=== PATIENT | female | born 1945 | race Caucasian/White ===

== ENCOUNTER → 2018-03-20 15:03 | Outpatient (CLI) | payer OTHER, SELFPAY ==
--- NOTE | 2018-03-20 | DI.MG.S_ITS ---
BILATERAL DIGITAL SCREENING MAMMOGRAM 3D/2D WITH CAD: 03/20/2018 CLINICAL: Routine screening. Comparison is made to exams dated: 06/28/2005 mammogram, 05/29/2003 mammogram, and 02/12/2001 mammogram - [facility]. The tissue of both breasts is predominantly fatty. Current study was also evaluated with a Computer Aided Detection (CAD) system. No significant masses, calcifications, or other findings are seen in either breast. There has been no significant interval change. IMPRESSION: NEGATIVE There is no mammographic evidence of malignancy. A 1 year screening mammogram is recommended. This exam was interpreted at Station ID: [id number]. NOTE: For mammograms, a report in lay terms will be sent to the patient. Approximately 15% of breast malignancies will not be visualized mammographically. In the management of a palpable breast mass, a negative mammogram must not discourage biopsy of a clinically suspicious lesion. Electronically Signed By: Charisse beltran/kenneth:03/20/2018 16:03:21 letter sent: Normal Exam ACR BI-RADS Category 1: Negative [id number]
== END ==
PROVIDERS: Family Provider Internal Medicine; PCP Internal Medicine; Visit Provider Internal Medicine
DX: Z12.31 Encounter for screening mammogram for malignant neoplasm of breast (principal)
CPT/HCPCS: 77063; 77067

== ENCOUNTER → 2018-03-26 08:20 | Outpatient (CLI) | payer OTHER, SELFPAY ==
[2018-03-26 11:40] LABS: Alanine Aminotransferase 33 IU/L (9-52); Aspartate Aminotransferase 27 IU/L (14-36); Blood Urea Nitrogen 14 mg/dL (7-17); Calcium 9.4 mg/dL (8.4-10.2); Carbon Dioxide 30 mmol/L (22-32); Chloride 102 mmol/L (98-107); Cholesterol 178 mg/dL (140-199); Estimated Glomerular Filt Rate > 60.0 mL/min (>60); Glucose 97 mg/dL (80-110); HDL Cholesterol 78 mg/dL (40-60); HEMOLYSIS < 15 (0-50); LDL Cholesterol Calculated 83 mg/dL (<100); Potassium 4.7 mmol/L (3.4-5.1); Sodium 140 mmol/L (137-145); Triglycerides 87 mg/dL (35-150)
== END ==
PROVIDERS: Family Provider Internal Medicine; PCP Internal Medicine; Visit Provider Internal Medicine
DX: E78.5 Hyperlipidemia, unspecified (principal); I10 Essential (primary) hypertension
CPT/HCPCS: 36415; 80048; 80061; 84450; 84460

== ENCOUNTER → 2018-08-02 13:43 | Outpatient (CLI) | payer OTHER, SELFPAY ==
--- NOTE | 2018-08-02 | DI.ECHO.S_ITS ---
[facility] +---------+ [facility] +---------+ : : [address] : [address], [place] : : : : [id number] : : : : Phone: [phone]+ Echocardiogram Report + + :Name: KORI CADE Study Date: 08/02/2018 Height: 67 in : :[facility] Weight: 198 lb : : Gender: Female BSA: 2.0 m2 : :: 1945 Age: 73 yrs BP: 158/82 mmHg: :Reason For Study: Syncope : : Performed By: Tayla Temple : :Referring: LISBETH KENNY : + + Interpretation Summary 1) Normal left ventricular size, thickness, wall motion, and systolic function (EF 60-65%). 2) Normal right ventricular size and function. 3) No significant valvular abnormalities. 4) No prior Echo available for comparison. Procedure: A two-dimensional transthoracic echocardiogram with color flow and Doppler was performed. The study quality was technically adequate. There is no prior echocardiogram noted for this patient. The patient was in normal sinus rhythm during the exam. Left Ventricle: The left ventricle is normal in size, wall thickness, and systolic function without any focal wall motion abnormalities. The ejection fraction is estimated to be 60-65%. Diastolic function could not be accurately assessed due to unobtainable data. Right Ventricle: The right ventricle grossly appears normal in size with probable normal systolic function. Atria: The left atrium is mildly dilated. Right atrial size is normal. The interatrial septum is intact with no evidence for an atrial septal defect. Mitral Valve: The mitral valve is grossly normal. There is trace mitral regurgitation. Aortic Valve: The aortic valve opens well. There is no aortic valve stenosis. No aortic regurgitation is present. Tricuspid Valve: The tricuspid valve is normal in structure and function. No tricuspid regurgitation. Pulmonic Valve: The pulmonic valve is not well seen, but is grossly normal. There is no pulmonic valvular regurgitation. Great Vessels: The aortic root is normal size. The dimensions of the ascending aorta are normal. The IVC is of normal diameter and collapses greater than 50% with a sniff. This suggests a low right atrial pressure of 3 mm Hg. Pericardium/ Pleura There is no pericardial effusion. There is no pleural effusion. MMode/2D Measurements & Calculations LVIDd: 4.4 cm Ao root diam: 2.7 cm LVIDs: 2.8 cm Aortic Jxn: 2.4 cm FS: 37.0 % asc Aorta Diam: 3.1 cm EPSS: 0.51 cm Ao Arch Diam (Prox Trans): 2.6 cm IVSd: 0.97 cm LVPWd: 0.99 cm LV cope. diameter/BSA (cm/m^2): 2.2 LV sys. diameter/BSA (cm/m^2): 1.4 LA dimension: 3.7 cm RA long axis: 4.8 cm LA A2 area: 22.8 cm2 RA area: 15.8 cm2 LA A4 area: 20.1 cm2 RA vol: 43.8 ml LA length (vol): 5.3 cm RA : 21.8 ml/m2 LA vol: 73.9 ml IVC diam: 1.9 cm LA vol index: 36.7 ml/m2 RVDd major: 5.2 cm RVD1 (basal): 3.4 cm RVD2 (mid): 2.7 cm Doppler Measurements & Calculations Ao V2 max: 158.9 cm/sec LVOT Max Mike: 160.9 cm/sec Ao V2 mean: 99.0 cm/sec LV V1 max P.4 mmHg Ao max P.1 mmHg LV V1 VTI: 39.0 cm Ao mean P.6 mmHg sev ratio: 1.1 Ao V2 VTI: 35.7 cm MV E max mike: 101.6 cm/sec PA Accel Time: 0.16 sec MV A max mike: 102.5 cm/sec MV E/A: 0.99 Med Peak E' Mike: 5.9 cm/sec E/E' med: 17.2 Lat Peak E' Mike: 9.7 cm/sec E/E' lat: 10.5 E/e' average: 13.9 MV dec time: 0.22 sec MV P1/2t: 64.9 msec MV P1/2t max mike: 102.0 cm/sec MVA(P1/2t): 3.4 cm2 Reading Physician:03:19 PM
== END ==
PROVIDERS: Family Provider Internal Medicine; PCP Internal Medicine; Visit Provider Internal Medicine
DX: R55 Syncope and collapse (principal)
CPT/HCPCS: 93306

== ENCOUNTER → 2019-04-28 09:32 | Outpatient (CLI) | payer OTHER, SELFPAY ==
[2019-04-28 10:55] LABS: Add Manual Diff / Slide Review NO; Basophils Absolute Auto 0 /uL (0-100); Basophils Percent Auto 0.6 % (0-2); Eosinophils Absolute Auto 100 /uL (0-450); Eosinophils Percent Auto 1.5 % (2-4); Hematocrit 39.7 % (36-46); Hemoglobin 13.4 g/dL (12.0-16.0); Lymphocytes Absolute Auto 1400 /uL (1100-4500); Lymphocytes Percent Auto 21.5 % (25-40); Mean Corpuscular HGB Conc 33.7 % (30-36); Mean Corpuscular Hemoglobin 30.9 PG (26-34); Mean Corpuscular Volume 91.7 fL (80-100); Monocytes Absolute Auto 500 /uL (0-900); Monocytes Percent Auto 8.2 % (3-14); Neutrophils Absolute Auto 4500 /uL (1500-7000); Neutrophils Percent Auto 68.2 % (50-75); Platelet Count 217 X10^3/uL (150-400); Red Blood Cell Count 4.33 X10^6/uL (4.0-5.2); Red Cell Distribution Width 13.1 % (11.6-14.8); White Blood Cell Count 6.6 X10^3/uL (4.5-11.0)
[2019-04-28 11:11] LABS: Carbon Dioxide 28 mmol/L (22-32); Chloride 105 mmol/L (98-107); HEMOLYSIS < 15 (0-50); Potassium 4.6 mmol/L (3.4-5.1); Sodium 139 mmol/L (137-145)
== END ==
PROVIDERS: PCP Internal Medicine; Visit Provider Orthopaedic Surgery
DX: Z01.818 Encounter for other preprocedural examination (principal); Z01.812 Encounter for preprocedural laboratory examination
CPT/HCPCS: 36415; 80051; 85025; 93005

== ENCOUNTER → 2019-05-12 07:26 | Outpatient (CLI) | payer OTHER, SELFPAY ==
[2019-05-12 09:05] LABS: Cholesterol 210 mg/dL (140-199); HDL Cholesterol 95 mg/dL (40-60); LDL Cholesterol Calculated 95 mg/dL (<100); Triglycerides 99 mg/dL (35-150)
== END ==
PROVIDERS: PCP Internal Medicine; Visit Provider Internal Medicine
DX: E78.5 Hyperlipidemia, unspecified (principal)
CPT/HCPCS: 36415; 80061

== ENCOUNTER 2019-06-04 09:22 | Day surgery (SDC) | payer OTHER, SELFPAY ==
[2019-05-20 12:50] VITALS: BMI 28.6
[2019-06-04] VITALS (16 sets, daily range): BP systolic 94–139; BP diastolic 45–81; PULSE 63–81; RESP 13–20; TEMP 35.7–36.4; O2SAT 93–99; BMI 28.6
--- NOTE | 2019-06-04 07:19 | DI.RAD.S_ITS ---
PROCEDURE: XR KNEE RT 1TO2V INDICATIONS: post op films TECHNIQUE: 2 view(s) of the knee acquired. COMPARISON: [facility], , KNEE 3V LEFT, 08/27/2015, 10:31. FINDINGS: Bones: Patient is status post knee joint arthroplasty. Hardware components are in expected positions. Visualized bony structures are intact. Soft tissues: Overlying postoperative changes are noted. IMPRESSION: Status post right total knee arthroplasty. No acute hardware complication. Normal postoperative alignment. Dictated by: Jamal Walker M.D. on 06/04/2019 at 17:47 Approved by: Jamal Walker M.D. on 06/04/2019 at 17:48
[2019-06-04] MEDS: LACTATED RINGERS 1,000 ML 42 ML IV ×2 (10:03→13:34)
[2019-06-04] MEDS: CELECOXIB 200 MG CAPSULE PO (10:12)
[2019-06-04] MEDS: PREGABALIN 75 MG CAPSULE PO (10:12)
[2019-06-04] MEDS: ACETAMINOPHEN 325 MG TABLET 975 MG PO ×2 (10:12→15:39)
--- NOTE | 2019-06-04 10:45 | P.OP_ITS ---
Operative Date/Time/Diagnoses Date of procedure: 06/04/19 Time of procedure: 13:23 Pre-op diagnosis: Right knee osteoarthritis Post-op diagnosis: same Procedure & Clinicians Procedure: Right total knee arthroplasty Same procedure as scheduled: Yes Indications: The patient presents today for total knee arthroplasty after failure of conservative treatment. The nature of the procedure including the risks and benefits, alternatives, postoperative course and expected outcome were discussed and all questions answered. Consent was obtained. Operative site confirmed and marked. Surgeon: Chris Avery Story Writer: Jaime Huerta Anesthesia Type: General, Spinal and Local Operative Notes Findings: Severe osteoarthritis with varus alignment. Closure Type: primary Specimen(s): none sent Prosthetic devices, grafts, tissues, transplants, or devices: [employer] BCS: 5 femoral component, 3 tibial component, 9 mm BCS polyethylene tray and 32 x 7.5 mm round patella Blood products transfused: none Tourniquet time (min): 47 Procedure in detail: The patient was taken to the operative suite and placed under general and spinal. The patient was given prophylactic antibiotics prior to surgery. The patient was also given tranexamic acid, 1 g, just prior to surgery for postoperative hemostasis. The lateral knee was prepped and the joint injected with 20 mL of 1% Lidocaine with epinephrine. The knee was then prepped and draped in usual sterile fashion. The leg was exsanguinated with an Esmarch dressing and the tourniquet raised to 250 torr. A 15 cm anterior incision was made. Next a medial trivector arthrotomy was made. The extensor mechanism was marked to ensure accurate repair. Initial exposing dissection was carried out medially and laterally. The knee was then extended and the patellar thickness was measured and a cut made removing approximately 7- 8 mm of bone with a goal of restoring normal patellar thickness. The patella was then sized and drilled. Some excess lateral bone was excised and the patellofemoral ligament released. The tourniquet was then released. The knee was then flexed and the [employer] femoral guide was placed. The anterior pins were placed and the distal rotation holes drilled. The distal cutting guide was placed and the templated distal femoral cut was made. The templating cutting block was then placed and the anterior, posterior and chamfer cuts made. The [employer] tibial guide was placed and the alignment checked along the axis of the proximal tibial with a thien. The proximal tibial cut was then made with an oscillating saw. All meniscus and bony debris was then removed. Flexion extension gaps were checked. There is mild tightness medially in flexion only. This was corrected with percutaneous release of the MCL with an 18 gauge needle. The soft tissues were then injected with a combination of 20 mL of half percent Marcaine with epinephrine and 20 mL of Exparel. The trial components were then placed. The knee went into full extension and flexion beyond 120?. There was excellent medial- lateral balance throughout motion. Patellar tracking was excellent. The trial components were removed and size is confirmed for the final implants. The knee was then exsanguinated with an Esmarch dressing and the tourniquet reapplied for cementing. The knee was cleansed with Pulsavac irrigation and dried. The final components were cemented in with high viscosity vacuum mixed bone cement with antibiotics. The knee was held in extension and the patellar clamp until the cement had adequately cured. The knee was then irrigated with dilute Betadine solution. The extensor mechanism was closed with 5 interrupted #1 Vicryl sutures in 90 degrees of flexion. The joint was then injected with a combination of 1 g of tranexamic acid and 20 mL of quarter percent Marcaine with epinephrine. The subcutaneous tissue was closed with 2-0 Vicryl. The skin was closed with ravi and surgical adhesive. An Aquacel dressing and Maycol wrap were then applied. Complications: none Post-operative Condition: stable Disposition: PACU Plan for aftercare: [facility] protocol for total knee arthroplasty.
--- NOTE | 2019-06-04 10:45 | PM.PREOP ---
Pre-operative Note Interval Note History & Physical reviewed/Exam performed by Physician: Yes Changes to H&P: No
--- NOTE | 2019-06-04 11:30 | P.PCN_ITS ---
Procedures Date/Time Date of procedure: 06/04/19 Time of procedure: 11:30 General Procedure description: Ultrasound guided adductor canal nerve block for post op pain control after Right total knee arthroplasty by Dr. Avery. Risk and be nefits of procedure discussed with patient. ASA monitoring applied to patient. O2 given via nasal cannula. 2 mg Versed and 100 mcg fentanyl given for procedural sedation. Skin site was prepped with chlorhexidine and allowed to fully dry. Sterile gloves, mask, hat and probe cover were used to maintain sterility. 2% lidocaine and 30ga needle was used to make a small skin wheal at needle insertion site. Under ultrasound guidance, a 21ga 100mm Pajunk needle was directed into the adductor canal near femoral artery and saphenous nerve at the level of mid thigh. Patient reported no parasthesias. After negative aspiration, 20 mL 0.5% ropivicaine and 10mg dexamethasone were injected around saphenous nerve. Patient tolerated procedure well.
[2019-06-04] MEDS: CEFAZOLIN 2 GM/100 ML FROZ.PIGGY IV (12:00)
[2019-06-04] MEDS: TRANEXAMIC ACID 1,000 MG VIAL 1000 MG INJ (12:36)
--- NOTE | 2019-06-04 12:45 | SUR.PREOP ---
Block start time [1129] . Monitoring initiated and maintained throughout procedure. Oxygen and medications given per anesthesiologist instructions. Patient remained stable throughout procedure, no adverse reactions noted. Block end time [1140].
--- NOTE | 2019-06-04 12:45 | SUR.OPER ---
Supine on padded OR bed. Pillow under head, arms secured on padded armboards <90 degree abduction. Safety belt across torso. Non-operative leg secured with tape over blanket over lower leg. Operative leg secured in DeMayo/Shahid positioner. Foam padded brace at thigh of operative leg.
[2019-06-04] MEDS: BUPIVACAINE 0.25% W/ EPI (PF) 40 ML, BUPIVACAINE LIPOSOME 266 MG, SODIUM CHLORIDE 0.9% ... INJ (12:57)
[2019-06-04] MEDS: BUPIVACAINE 0.25% W/ EPI (PF) 20 ML, TRANEXAMIC ACID 1,000 MG, SODIUM CHLORIDE 0.9% 10 ML INJ (12:59)
[2019-06-04] MEDS: LACTATED RINGERS 1,000 ML 125 ML IV (15:43)
--- NOTE | 2019-06-04 16:10 | PT.IIE ---
Current Diagnoses Bilateral primary osteoarthritis of knee (06/04/19) Surgery Performed Operation Date: 06/04/19 11:30 Actual Procedures p Total Knee Arthroplasty(Right) - Chris Avery MD Surgical History (Last Updated 05/20/19 @ 13:38 by Kat Camacho, RN) Hx of lithotripsy (Acute) Hx of right knee surgery (Acute) Medical History (Last Updated 05/20/19 @ 13:17 by Kat Camacho RN) Easy bruisability (Acute) Encounter for IUD removal (Acute) HLD (hyperlipidemia) (Acute) HTN (hypertension) (Acute) Kidney stone (Acute) Patellar fracture (Acute ~1994) Seasonal allergies (Acute) Senile purpura (Acute) Physical Therapy Inpatient Evaluation/Re-Eval M1 PT/OT-IP Prior Functional Status Start: 06/04/19 16:53 Freq: NEEDED Status: Active Protocol: Document 06/04/19 16:10 AB (Rec: 06/04/19 17:03 AB [id number]) Medical Review Prior Functional Status Medical History Reviewed Yes Communication able to make needs known Mobility and Gait pt stated that she is independent with all mobilities and ambulation without AD Social History Household Members spouse Living Arrangements House Number of Floors (Floors) One Floor Number of Stairs To Enter/Railing? no steps to enter Home Environment Standard Height Toilet,Walk in Shower,Built-In Shower Seat Home Equipment Front Wheel Walker,Quad Cane, Crutches,Raised Toilet Seat w/ Armrests,Shower Seat with Backrest,Hand Held Shower Employment Status Retired Additional Social History Comment has a transport w/c M2 PT-IP Current Condition Start: 06/04/19 16:53 Freq: NEEDED Status: Active Protocol: Document 06/04/19 16:10 AB (Rec: 06/04/19 17:03 AB [id number]) Physical Therapy Current Condition Current Condition Evaluation Date 06/04/19 Treatment Diagnosis s/p R TKA; difficulty in walking Onset Date 06/04/19 Weight Bearing Status Weight Bearing Status Weight Bear as Tolerated M3 PT-IP Subjective Start: 06/04/19 16:53 Freq: NEEDED Status: Active Protocol: Document 06/04/19 16:10 AB (Rec: 06/04/19 17:03 AB [id number]) Subjective Physical Therapy Visit Type Type Initial Evaluation Visit Start Time 16:10 Visit Stop Time 16:50 Total Visit Minutes 40 Number of NUB CARD TENDER Visits 0 Physical Therapy Visit Comments Patient Comments pt agreeable to do PT; stated that there is still slight numbness on her R foot Therapy Pain Assessment Pain Present Pain Present Denied Pain M4 PT-IP Mobility and Gait Start: 06/04/19 16:53 Freq: NEEDED Status: Active Protocol: Document 06/04/19 16:10 AB (Rec: 06/04/19 17:03 AB [id number]) PT-Bed Mobility Assessment Supine to Sit Supine to Sit Standby Assistance Sit to Supine Sit to Supine Standby Assistance Scooting Scooting to Edge of Bed Standby Assistance PT-Transfer Assessment Sit to and From Stand Sit to and from Stand Contact Guard Assistance,1 Person Assistance,Use of Upper Extremities Equipment Transfer Assistive Device Gait Belt,Front Wheeled Walker Orthotic/Prosthetic Devices or Brace: No Transfers Transfer Destination Toilet Transfer Technique ambulated to the toilet Transfer Ability Level of Assist Contact Guard Assistance,1 Person Assistance,Use of Upper Extremities Comments Mobility Comments BP supine 121/71 pt ompleted bed mobility supine to sit SBA ; was able to sit on EOB SBA. BP 124/73. ambulated to the toilet using FWW CGA. pt agreed to ambulate further after using the toilet. pt ambulated in the hallway and after ~ 50 ft stated that she has to turn around and go back and feels a little nausea and cold but also hot. Pt walked ~ 20 ft towards her room and has to sit down. assisted pt back to her room on a w/c. BP checked: 139/72. pt still feels lightheaded and nauseated. pt completed stand step transfer w/c to bed using FWW CGA. completed sit to supine SBA. positioned pt in bed. call light and table placed within reach. nurse aware of pt's BP and c/o nausea. Gait Assessment Gait Gait Assistance Required: Contact Guard Assist Distance (Feet) 70 Able to Maintain Weight Bearing Status Yes During Gait Assistive Devices Assistive Device Gait Belt,Front Wheeled Walker Orthotic/Prosthetic Devices or Brace: No Gait Deviations General Gait Pattern Antalgic,Decreased Stride Length,Decreased Feet Clearance Factors Limiting Gait Function Factors Limiting Gait Function Decreased Activity Tolerance, Decreased Sensation,Decreased Strength,Limited Range of Motion,Poor Balance,Poor Safety Awareness Comments Gait Comments pls refer to mobility section for details PT-Balance Assessment Sitting Balance and Reactions Static Sitting Balance Ability Good Dynamic Sitting Balance Ability Good Standing Balance and Reactions Static Standing Balance Ability Fair Dynamic Standing Balance Ability Fair Device Used FWW M5 PT-IP Objective Assessments Start: 06/04/19 16:53 Freq: NEEDED Status: Active Protocol: Document 06/04/19 16:10 AB (Rec: 06/04/19 17:03 AB [id number]) Orientation Orientation/Cognition Level of Alertness Alert Orientation Name,Place,Situation Safety Awareness Understands Safety Issues Memory Description No Deficits Noted Gross Range of Motion Lower Extremity ROM Assessment Right Impaired Impairments R knee flexion: ~ 90 deg Strength Comments Strength Comments LLE: 5/5 RLE: 4-/5 Coordination Assessment Gross Coordination Gross Coordination WNL Sensation Assessment Sensation Gross Sensation Right LE Impaired Sensation Description Numbness M6 PT-IP Treatment Start: 06/04/19 16:53 Freq: NEEDED Status: Active Protocol: Document 06/04/19 16:10 AB (Rec: 06/04/19 17:03 AB [id number]) Physical Therapy Treatment Exercises Exercises Heel Slides Education Education Provided Precautions,Weight Bearing Status,Post-Op Packet,Safety M7 PT-IP Assessment and Plan Start: 06/04/19 16:53 Freq: NEEDED Status: Active Protocol: Document 06/04/19 16:10 AB (Rec: 06/04/19 17:03 [id number]) PT Summary Assessment and Plan Potential Rehabilitation Potential Good Status of Condition at Evaluation Evolving Summary Impairments Pain,ROM,Strength,Balance, Sensation,Bed Mobility, Transfers,Gait,Activity Tolerance Assessment Summary pt requiring CGA with mobility but unable to tolerate much with c/o nausea and lightheadedness. pt plans to go home and spouse to assist her. Goals Bed Mobility Goal Independent Transfer Goal Independent,Front Wheeled Walker Gait Goal Independent,Front Wheel Walker Gait Distance 200 Days to Meet Goals 3 Frequency of Treatment Frequency Of Treatment Twice a Day Treatment Plan Physical Therapy Treatment Plan Bed Mobility Training,Transfer Training,Gait Training, Therapeutic Exercise,Balance Retraining,Post Op Education, Discharge Planning,Hot or Cold Pack,Neuromuscular Re-ed, Coordination Retraining,Manual Therapy Other Recommendations and Next Treatment ambulation Focus Recommendations To Nursing Amount of Assist Needed 1 Person Assist Discharge Recommendations PT Discharge Recommendations Home with Assistance, Outpatient PT
--- NOTE | 2019-06-04 16:12 | PC.ADMIT ---
[email or web address] [facility] Admission Note: The patient,Jolly Clark,74 y/o, was given written information regarding hospital policies, unit procedures and contact persons. Patient's smoking status: Former smoker. Assumed care of pt at 1500. Shortly after pt arrived to unit from PACU. Denies pain. Reports mild tingling to Bilateral feet. Able to wiggle toes. Drsg with idalmis wrap c/d/i. Oriented to room and call system. IVF set-up per orders. 2L NC sats 99%. Oxygen removed sats remained 99%, CPOX. Auditude path I.S. set-up and instructed on use. Call light within reach. Pt verbalized she will call for needs. Vital Signs - 8 hr 06/04/19 09:46 06/04/19 13:43 06/04/19 13:48 Temperature 97.6 F 97.0 F L Pulse Rate 72 78 69 Respiratory Rate 15 20 14 Blood Pressure 139/81 104/48 L 94/49 L Pulse Oximetry 99 96 98 06/04/19 13:53 06/04/19 13:58 06/04/19 14:05 Temperature Pulse Rate 74 70 71 Respiratory Rate 17 14 14 Blood Pressure 97/45 L 108/54 L 106/55 L Pulse Oximetry 97 96 97 06/04/19 14:09 06/04/19 14:19 06/04/19 14:31 Temperature 96.8 F L 96.3 F L Pulse Rate 70 70 69 Respiratory Rate 16 13 17 Blood Pressure 101/59 L 103/50 L 104/53 L Pulse Oximetry 97 97 96 06/04/19 14:46 Temperature 97.0 F L Pulse Rate 65 Respiratory Rate 16 Blood Pressure 114/66 Pulse Oximetry 96
[2019-06-04] MEDS: diphenhydrAMINE 50 MG/ML VIAL 25 MG IV (18:06)
--- NOTE | 2019-06-04 18:39 | PM.DS.1 ---
History of Present Illness History of Present Illness Date Patient Seen: 06/04/19 Time Patient Seen: 18:39 Chief complaint: *[id number] Narrative: Patient is having no pain. Denies fever chills. No nausea vomiting. She was up with physical therapy. She has been able to urinate on her own. Patient wishes to go home if safe to do so. Patient does have assistance at home. Discharge Providers Provider Discharge Date: 06/04/19 Primary care physician: Mi Rodriguez MD Consults: 06/04/19 15:06 Consult to Discharge Planning Routine Comment: Consult to Physical Therapy Evaluate & Treat Comment: Physician Instructions: postop TKA protocol Consult to Respiratory Therapy Evaluate & Treat Comment: Physician Instructions: Evaluate and treat Discharge provider: Jaime Huerta PA-C Summary Hospital Course Discharge Diagnosis: Status post right total knee arthroplasty secondary to severe right knee osteoarthritis Hospital Course: [address] [address] Operative Note Patient: Jolly Clark [facility]#: [id number] : 4Acct:[id number] Age/Sex: 74 / F Date of Service: 06/04/19 Provider: Chris Avery MD Operative Date/Time/Diagnoses Date of procedure: 06/04/19 Time of procedure: 13:23 Pre-op diagnosis: Right knee osteoarthritis Post-op diagnosis: same Procedure & Clinicians Procedure: Right total knee arthroplasty Same procedure as scheduled: Yes Indications: The patient presents today for total knee arthroplasty after failure of conservative treatment. The nature of the procedure including the risks and benefits, alternatives, postoperative course and expected outcome were discussed and all questions answered. Consent was obtained. Operative site confirmed and marked. Surgeon: Chris Avery Reading Tutor: Jaime Huerta Anesthesia Type: General, Spinal and Local Operative Notes Findings: Severe osteoarthritis with varus alignment. Closure Type: primary Specimen(s): none sent Prosthetic devices, grafts, tissues, transplants, or devices: [employer] BCS: 5 femoral component, 3 tibial component, 9 mm BCS polyethylene tray and 32 x 7.5 mm round patella Blood products transfused: none Tourniquet time (min): 47 Patient admitted to the hospital for right total knee arthroplasty. Patient consented to the same. Patient taken to operating room this morning underwent right total knee arthroplasty. Patient back in her room recovering well as in stable condition. Patient worked with physical therapy. She is safe to discharge home in stable condition. Status at Discharge Cognitive/behavioral status at discharge: at baseline, oriented Functional status at discharge: uses cane/walker Overall status at discharge: patient is progressing back to baseline Exam Vital Signs (past 8 hours): - 06/04/19 13:43 06/04/19 13:48 06/04/19 13:53 Temperature 97.0 F L Pulse Rate 78 69 74 Respiratory Rate 20 14 17 Blood Pressure 104/48 L 94/49 L 97/45 L Pulse Oximetry 96 98 97 06/04/19 13:58 06/04/19 14:05 06/04/19 14:09 Temperature 96.8 F L Pulse Rate 70 71 70 Respiratory Rate 14 14 16 Blood Pressure 108/54 L 106/55 L 101/59 L Pulse Oximetry 96 97 97 06/04/19 14:19 06/04/19 14:31 06/04/19 14:46 Temperature 96.3 F L 97.0 F L Pulse Rate 70 69 65 Respiratory Rate 13 17 16 Blood Pressure 103/50 L 104/53 L 114/66 Pulse Oximetry 97 96 96 06/04/19 15:10 06/04/19 15:40 06/04/19 16:40 Temperature 96.6 F L 96.8 F L 96.7 F L Pulse Rate 63 66 72 Respiratory Rate 16 16 16 Blood Pressure 110/57 L 121/71 127/58 L Pulse Oximetry 95 98 99 06/04/19 16:48 06/04/19 17:40 Temperature 96.7 F L Pulse Rate 70 81 Respiratory Rate 16 Blood Pressure 123/59 L Pulse Oximetry 96 93 Oxygen Delivery Method Room Air Oxygen Flow Rate 0 Narrative Exam Narrative: Pleasant 74-year-old female resting comfortably in bed in no apparent distress. Right knee dressing is clean, dry and intact. Motor functions intact distal right lower extremity. Sensation grossly intact to light touch. Right leg is warm and dry. SCDs are on and functioning. Discharge Plan Discharge Plan Patient Disposition: Home Discharge Med Rec/Prescriptions Prescriptions: Continued losartan 50 mg Tablet 100 mg PO QAM RF: 0 atorvastatin 20 mg Tablet 20 mg PO BEDTIME RF: 0 cetirizine 10 mg Tablet 10 mg PO DAILY RF: 0 diphenhydramine HCl [Benadryl] 25 mg Capsule 25 mg PO BEDTIME RF: 0 ibuprofen 200 mg Tablet 400 mg PO BID-TID PRN (Reason: Pain) RF: 0 fluticasone propionate [Flonase Allergy Relief] 50 mcg/actuation [place],Suspension 1 spray INTRANASAL DAILY RF: 0 Follow up/Referrals: Chris Avery MD [Physician] - (1 wk) Discharge Orders: Discharge (Order); Ordered 06/04/19 Ordered By: Jaime Huerta Provider Discharge Instructions Diet: Diet as Tolerated Activity: Weightbearing as tolerated Cold/Heat Therapy: Ice as needed Other treatments: Aspirin 81 mg b.i.d., Tylenol 500 mg q.4 hours, ibuprofen 400 mg q.4 hours, oxycodone as needed pain Skin/Wound/Dressing Care Report to your healthcare provider any signs of infection, such as:: chills, fever, increased pain, unusual drainage and unusual redness Dressing: Keep dressing clean and dry, may remove Maycol wrap in 2-3 days Discharge Data Primary Care Provider: Mi Rodriguez Attending Provider: Chris Avery VTE Deep Vein Thrombosis/Pulmonary Embolism Present on Admission: No
[2019-06-04] MEDS: ONDANSETRON 4 MG ODT PO (19:19)
--- NOTE | 2019-06-04 21:32 | PC.NURSE ---
Jaime GODWIN rounded on pt this evening; discharge orders written. Pt ambulated to bathroom. Steady on feet. D/c education provided. Pt states she has all scripts as given pre-op. IV removed. As pt was about to leave she became nauseous and had 200 ml emesis. ODT zofran given as pt no longer had IV. Pt escorted out via w/c with all personal belongings in stable condition.
== END 2019-06-04 19:30 | disposition home or self-care (01) ==
LOC: OR 09:30 → AC 09:34
PROVIDERS: PCP Internal Medicine; Visit Provider Orthopaedic Surgery
PROC: 0SRC0JZ Replacement of Right Knee Joint with Synthetic Substitute, Open Approach (ICD-10-PCS; CPT 27447; principal; 2019-06-04 11:30)
DX: M17.11 Unilateral primary osteoarthritis, right knee (principal); G89.18 Other acute postprocedural pain; M85.80 Other specified disorders of bone density and structure, unspecified site; I10 Essential (primary) hypertension; E78.5 Hyperlipidemia, unspecified; Z87.891 Personal history of nicotine dependence
CPT/HCPCS: 27447; 64447; 73560; 94762; 97162; 97530; C1776; C9290; J0690; J1100; J1200; J2250; J2274; J2405; J2704; J3010

== ENCOUNTER → 2020-02-02 14:10 | Outpatient (CLI) | payer OTHER, SELFPAY ==
[2019-06-04 15:08] VITALS: BMI 28.6
--- NOTE | 2020-02-02 | DI.MRI.S_ITS ---
PROCEDURE: MR KNEE LT WO CON INDICATIONS: PAIN IN LEFT KNEE TECHNIQUE: Noncontrast sagittal PD fast spin echo and T2 fast spin echo with fat saturation, sagittal 3-D FLASH with fat saturation; coronal T1 spin echo and PD fast spin echo with fat saturation, and axial PD fast spin echo with fat saturation through the knee. COMPARISON: [facility], CR, XR KNEE ARTHRITIC SERIES RT, 07/21/2019, 10:32. FINDINGS: Image quality: Excellent. Menisci: Medial meniscus is intact. Amorphous high signal intensity within the anterior horn, body, and posterior horn lateral meniscus is present, demonstrating superior and inferior articular surface extension, indicating degenerative tearing. Cruciate ligaments: The anterior and posterior cruciate ligaments appear intact. Medial structures: The medial collateral ligament appears intact. Visualized portions of the pes anserinus tendons appear normal. Small amount of medial bursal fluid. Lateral structures: The lateral collateral ligament demonstrates mild T2 signal elevation of its femoral origin and within the midportion. The long and short heads of the biceps femoris tendon appear intact. The popliteus tendon appears normal. Iliotibial band appears normal. Anterior structures: The quadriceps and patellar tendons appear intact. Patellar alignment is normal. No femoral trochlear dysplasia or ventral trochlear prominence. No edema in the infrapatellar fat pad. Bones and cartilage: No bone marrow contusions or fractures. There is moderate tricompartmental periarticular osteophyte formation. There is moderate to severe articular cartilage loss overlying the weightbearing aspects of the lateral femoral condyle and lateral tibial plateau. Severe articular cartilage loss overlies the patellar apex and lateral patellar facet. Joint space: There is a small knee joint effusion and a trace Calero's cyst. Normal appearing synovial plicae are incidentally noted. IMPRESSION: 1. Tricompartmental osteoarthritis with associated articular cartilage loss. 2. Multifocal tearing of the lateral meniscus. 3. Knee joint effusion and trace Calero's cyst. 4. Mild medial bursitis. 5. Lateral collateral ligament strain. Dictated by: Josy Araujo M.D. on 02/02/2020 at 15:52 Approved by: Josy Araujo M.D. on 02/02/2020 at 15:54
== END ==
PROVIDERS: PCP Internal Medicine; Referring Provider Orthopaedic Surgery; Visit Provider Orthopaedic Surgery
DX: M25.562 Pain in left knee (principal); M17.12 Unilateral primary osteoarthritis, left knee; S83.282A Other tear of lateral meniscus, current injury, left knee, initial encounter; S83.422A Sprain of lateral collateral ligament of left knee, initial encounter; M25.462 Effusion, left knee; M71.562 Other bursitis, not elsewhere classified, left knee
CPT/HCPCS: 73721

== ENCOUNTER → 2020-05-03 08:38 | Outpatient (CLI) | payer OTHER, SELFPAY ==
[2019-06-04 15:08] VITALS: BMI 28.6
[2020-05-03 09:18] LABS: Add Manual Diff / Slide Review NO; Basophils Absolute Auto 0 /uL (0-100); Basophils Percent Auto 0.7 % (0-2); Eosinophils Absolute Auto 200 /uL (0-450); Eosinophils Percent Auto 2.4 % (2-4); Hematocrit 40.1 % (36-46); Hemoglobin 13.4 g/dL (12.0-16.0); Lymphocytes Absolute Auto 1900 /uL (1100-4500); Lymphocytes Percent Auto 26.9 % (25-40); Mean Corpuscular HGB Conc 33.5 % (30-36); Mean Corpuscular Hemoglobin 30.9 PG (26-34); Mean Corpuscular Volume 92.5 fL (80-100); Monocytes Absolute Auto 500 /uL (0-900); Monocytes Percent Auto 7.4 % (3-14); Neutrophils Absolute Auto 4500 /uL (1500-7000); Neutrophils Percent Auto 62.6 % (50-75); Platelet Count 231 X10^3/uL (150-400); Red Blood Cell Count 4.33 X10^6/uL (4.0-5.2); Red Cell Distribution Width 13.3 % (11.6-14.8); White Blood Cell Count 7.2 X10^3/uL (4.5-11.0)
[2020-05-03 09:32] LABS: Carbon Dioxide 30 mmol/L (22-32); Chloride 104 mmol/L (98-107); HEMOLYSIS < 15 (0-50); Potassium 4.4 mmol/L (3.4-5.1); Sodium 141 mmol/L (137-145)
== END ==
PROVIDERS: PCP Internal Medicine; Referring Provider Orthopaedic Surgery; Visit Provider Orthopaedic Surgery
DX: Z01.812 Encounter for preprocedural laboratory examination (principal); Z01.818 Encounter for other preprocedural examination
CPT/HCPCS: 36415; 80051; 85025; 93005; 93010

== ENCOUNTER → 2020-05-23 14:58 | Outpatient (CLI) | payer OTHER, SELFPAY ==
[2019-06-04 15:08] VITALS: BMI 28.6
[2020-05-24 14:51] LABS: COVID19 Sendout Not Detected (Not Detect)
== END ==
PROVIDERS: PCP Internal Medicine; Visit Provider Physician Assistant
DX: Z01.812 Encounter for preprocedural laboratory examination (principal)
CPT/HCPCS: 87635

== ENCOUNTER 2020-05-26 06:18 | Day surgery (SDC) | payer OTHER, SELFPAY ==
[2019-06-04 15:08] VITALS: BMI 28.6
[2020-05-24 10:53] VITALS: BMI 28.1
[2020-05-26] VITALS (13 sets, daily range): BP systolic 103–152; BP diastolic 51–77; PULSE 60–82; RESP 10–19; TEMP 35.6–36.2; O2SAT 92–100; BMI 28.1
--- NOTE | 2020-05-26 06:00 | DI.RAD.S_ITS ---
PROCEDURE: XR KNEE LT 1TO2V INDICATIONS: POST OP TOTAL KNEE TECHNIQUE: 2 view(s) of the knee acquired. COMPARISON: [facility], CR, XR KNEE RT 1TO2V, 06/04/2019, 13:56. FINDINGS: Bones: Patient is status post knee joint arthroplasty. Hardware components are in expected positions. Visualized bony structures are intact. Soft tissues: Overlying postoperative changes are noted. IMPRESSION: Status post left total knee arthroplasty without acute hardware complication. Dictated by: Jamal Walker M.D. on 05/26/2020 at 14:20 Approved by: Jamal Walker M.D. on 05/26/2020 at 14:21
[2020-05-26] MEDS: CELECOXIB 200 MG CAPSULE PO (06:51)
[2020-05-26] MEDS: PREGABALIN 75 MG CAPSULE PO (06:51)
[2020-05-26] MEDS: ACETAMINOPHEN 325 MG TABLET 975 MG PO (06:51)
[2020-05-26] MEDS: LACTATED RINGERS 1,000 ML 42 ML IV (07:20)
--- NOTE | 2020-05-26 07:22 | SUR.OPER ---
Supine on padded OR bed. Pillow under head, arms secured on padded armboards <90 degree abduction. Safety belt across torso. Non-operative leg secured with tape over blanket over lower leg. Operative leg secured in Shahid positioner. Foam padded brace at thigh of operative leg.
--- NOTE | 2020-05-26 07:43 | P.OP_ITS ---
Operative Date/Time/Diagnoses Date of procedure: 05/26/20 Time of procedure: 09:26 Pre-op diagnosis: Left knee osteoarthritis Post-op diagnosis: same Procedure & Clinicians Procedure: Left total knee arthroplasty Same procedure as scheduled: Yes Indications: The patient presents today for total knee arthroplasty after failure of conservative treatment. The nature of the procedure including the risks and benefits, alternatives, postoperative course and expected outcome were discussed and all questions answered. Consent was obtained. Operative site confirmed and marked. Surgeon: Chris Avery Publication Specialist: Jaime Huerta Anesthesia Type: General, Spinal and Local Operative Notes Closure Type: primary Specimen(s): none sent Prosthetic devices, grafts, tissues, transplants, or devices: [employer] [facility] BCS: 6 femoral component, 3 tibial component, 9 mm BCS polyethylene tray and 32 x 7.5 mm round patella Applied: implant(s) Tourniquet time (min): 60 Procedure in detail: The patient was taken to the operative suite and placed under anesthesia. The patient was given prophylactic antibiotics prior to surgery. The patient was also given tranexamic acid, 1 g, just prior to surgery for postoperative hemostasis. The lateral knee was prepped and the joint injected with 20 mL of 1% Lidocaine with epinephrine. The knee was then prepped and draped in usual sterile fashion. The leg was exsanguinated with an Esmarch dressing and the tourniquet raised to 250 torr. A 15 cm anterior incision was made. Next a medial trivector arthrotomy was made. The extensor mechanism was marked to ensure accurate repair. Initial exposing dissection was carried out medially and laterally. The knee was then flexed and the intramedullary femoral guide thien placed. The distal femoral cut was made in 6? of valgus at the +0 position. The femoral size was measured and the appropriate cutting block was then placed and the anterior, posterior and chamfer cuts made. The intramedullary tibial alignment thien was then placed. The guide was set to remove approximately 9 mm from the less affected medial side. The proximal tibial cut was then made with an oscillating saw. All meniscus and bony debris was then removed. Posterior femoral osteophytes removed with a curved osteotome. Flexion extension gaps were checked. The knee was slightly tight laterally as expected from her preoperative alignment. This was corrected with a pie crust technique using a 15 blade in the lateral capsule.. The soft tissues were then injected with a combination of 20 mL of half percent Marcaine with epinephrine and 20 mL of Exparel. The trial components were then placed. The knee was then extended and the patellar thickness was measured and a cut made removing approximately 7-8 mm of bone. The patella was then sized and drilled. Some excess lateral bone was excised and the patellofemoral ligament released. The knee went into full extension and flexion beyond 130?. There was excellent medial-lateral balance throughout motion. Patellar tracking was excellent. The trial components were removed and the knee was cleansed with Pulsavac irrigation and dried. The final components were cemented with high viscosity vacuum mixed bone cement with antibiotics. The joint was filled with a dilute Betadine solution. The knee was held in extension and the patellar clamped until the cement was adequately cured. The knee was then irrigated. The extensor mechanism was closed with 5 interrupted #1 Vicryl sutures and a running Quill suture at approximately 90 degrees of flexion. The joint was then injected with a combination of 1 g of tranexamic acid and 20 mL of quarter percent Marcaine with epinephrine. The subcutaneous tissue was closed with 2 0 Vicryl. The skin was closed with absorbable subcuticular sutures and surgical adhesive. An Aquacel dressing and Maycol wrap were then applied. The patient tolerated the procedure well and was returned to recovery room in good condition. Post-operative Condition: stable Disposition: PACU Plan for aftercare: [facility] Care Protocol. Probable discharge home later today.
--- NOTE | 2020-05-26 07:44 | PM.PREOP ---
Pre-operative Note COVID-19 COVID-19 status: Negative Result date/Date tested (Pos, Neg/Pending): 05/23/20 Interval Note History & Physical reviewed/Exam performed by Physician: Yes Changes to H&P: No
[2020-05-26] MEDS: CEFAZOLIN 2 GM/100 ML FROZ.PIGGY IV ×2 (07:46→15:57)
[2020-05-26] MEDS: TRANEXAMIC ACID 1,000 MG VIAL 2000 MG INJ (08:23)
[2020-05-26] MEDS: BUPIVACAINE 0.25% W/ EPI (PF) 40 ML, BUPIVACAINE LIPOSOME 266 MG, SODIUM CHLORIDE 0.9% ... INJ (08:23)
[2020-05-26] MEDS: BUPIVACAINE 0.25% W/ EPI (PF) 20 ML, TRANEXAMIC ACID 1,000 MG, SODIUM CHLORIDE 0.9% 10 ML INJ (08:24)
[2020-05-26] MEDS: LIDOCAINE 1% W/EPI 20 ML INJ (08:25)
[2020-05-26] MEDS: SODIUM CHLORIDE IRRIG SOLUTION 250 ML, POVIDONE-IODINE SPONGE STICKS 1 APPLIC IRR (08:27)
[2020-05-26] MEDS: OXYCODONE IR 5 MG TABLET PO ×4 (09:56→16:59)
[2020-05-26] MEDS: fentaNYL 100 MCG/2 ML INJ IV ×2 (09:59→10:05)
[2020-05-26] MEDS: IBUPROFEN 400 MG TABLET PO ×2 (11:32→16:56)
[2020-05-26] MEDS: hydrOXYzine pamoate 25 MG CAPSULE PO (11:32)
[2020-05-26] MEDS: LACTATED RINGERS 1,000 ML 100 ML IV (11:32)
[2020-05-26] MEDS: HYDROMORPHONE 2 MG TABLET PO (11:33)
--- NOTE | 2020-05-26 11:40 | PT.IIE ---
Current Diagnoses Unilateral primary osteoarthritis, left knee (05/26/20) Surgery Performed Operation Date: 05/26/20 07:45 Actual Procedures p Total Knee Arthroplasty(Left) - Chris Avery MD Surgical History (Last Updated 05/24/20 @ 10:58 by Kat Camacho, RN) History of arthroplasty of right knee (Acute 06/04/19) Hx of lithotripsy (Acute) Hx of right knee surgery (Acute) Medical History (Last Updated 05/24/20 @ 11:00 by Kat Camacho RN) Easy bruisability (Acute) Encounter for IUD removal (Acute) HLD (hyperlipidemia) (Acute) HTN (hypertension) (Acute) Kidney stone (Acute) Osteoarthritis (Acute) Patellar fracture (Acute ~1994) Seasonal allergies (Acute) Senile purpura (Acute) Physical Therapy Inpatient Evaluation/Re-Eval M1 PT/OT-IP Prior Functional Status Start: 05/26/20 13:16 Freq: NEEDED Status: Active Protocol: Document 05/26/20 11:40 AB (Rec: 05/26/20 13:52 AB [id number]) Medical Review Prior Functional Status Medical History Reviewed Yes Communication able to make needs known Mobility and Gait pt stated that she is independent with all mobilities and ambulation without AD Social History Household Members significant other Living Arrangements House Number of Floors (Floors) One Floor Number of Stairs To Enter/Railing? no steps to enter Home Environment Standard Height Toilet,Walk in Shower Home Equipment Front Wheel Walker,Straight Cane,Raised Toilet Seat w/ Armrests,Shower Seat with Backrest,Hand Held Shower,Grab Bars In Shower M2 PT-IP Current Condition Start: 05/26/20 13:16 Freq: NEEDED Status: Active Protocol: Document 05/26/20 11:40 AB (Rec: 05/26/20 13:52 AB [id number]) Physical Therapy Current Condition Current Condition Evaluation Date 05/26/20 Treatment Diagnosis s/p L TKA; difficulty in walking Onset Date 05/26/20 Weight Bearing Status Weight Bearing Status Weight Bear as Tolerated Allowed Weight Bearing Amount (enter % LLE WBAT or #) (%) M3 PT-IP Subjective Start: 05/26/20 13:16 Freq: NEEDED Status: Active Protocol: Document 10/14/20 11:40 AB (Rec: 05/26/20 13:52 AB [id number]) Subjective Physical Therapy Visit Type Type Initial Evaluation Visit Start Time 11:40 Visit Stop Time 12:10 Total Visit Minutes 30 Number of FINISHER COLD ROLLING Visits 0 Physical Therapy Visit Comments Patient Comments pt is agreeable to do PT Therapy Pain Assessment Pain When Pain Assessed At Rest Pain Present Pain Present Pain Reported Location left knee Intensity 5 Scale Used Numeric (0 - 10) Pain Management Techniques Apply Cold,Modification of Treatment,Re-positioning, Timing of Activity with Medications M4 PT-IP Mobility and Gait Start: 05/26/20 13:16 Freq: NEEDED Status: Active Protocol: Document 05/26/20 11:40 AB (Rec: 05/26/20 13:52 AB [id number]) PT-Bed Mobility Assessment Supine to Sit Supine to Sit Standby Assistance Sit to Supine Sit to Supine Standby Assistance Scooting Scooting to Edge of Bed Standby Assistance PT-Transfer Assessment Sit to and From Stand Sit to and from Stand Standby Assistance,Contact Guard Assistance,1 Person Assistance,Use of Upper Extremities Equipment Transfer Assistive Device Gait Belt,Front Wheeled Walker Orthotic/Prosthetic Devices or Brace: No Transfers Transfer Destination Chair Transfer Technique ambulated using FWW Transfer Ability Level of Assist Standby Assistance,Contact Guard Assistance,1 Person Assistance,Use of Upper Extremities Comments Mobility Comments pt completed supine to sit SBA . able to sit on EOB SBA. completed sit to stand SBA to CGA and ambulated in room 40 ft using FWW. pt agreed to sit up on chair. positioned on chair. call light and table placed within reach. Gait Assessment Gait Gait Assistance Required: Standby Assistance,Contact Guard Assist Distance (Feet) 40 Able to Maintain Weight Bearing Status Yes During Gait Assistive Devices Assistive Device Gait Belt,Front Wheeled Walker Orthotic/Prosthetic Devices or Brace: No Gait Deviations General Gait Pattern Antalgic Factors Limiting Gait Function Factors Limiting Gait Function Decreased Activity Tolerance, Decreased Strength,Limited Range of Motion,Pain,Poor Balance PT-Balance Assessment Sitting Balance and Reactions Static Sitting Balance Ability Good Dynamic Sitting Balance Ability Good Standing Balance and Reactions Static Standing Balance Ability Fair Dynamic Standing Balance Ability Fair Device Used FWW M5 PT-IP Objective Assessments Start: 05/26/20 13:16 Freq: NEEDED Status: Active Protocol: Document 05/26/20 11:40 AB (Rec: 05/26/20 13:52 [id number]) Orientation Orientation/Cognition Level of Alertness Alert Orientation Name,Age,Birthday,Month,Date, Year,Day of Week,Place, Situation Language Function Ability No Deficits Noted Safety Awareness Understands Safety Issues Memory Description No Deficits Noted Gross Range of Motion Lower Extremity ROM Impairments L knee flexion: ~ 80 degrees L knee extension: ~ 10 deg less to 0 deg Strength Lower Extremity Strength Assessment Left Impaired Hip 4-/5 Knee 3+/5 Coordination Assessment Gross Coordination Gross Coordination WNL Sensation Assessment Sensation Gross Sensation WNL Muscle Tone Muscle Tone WNL Yes M6 PT-IP Treatment Start: 05/26/20 13:16 Freq: NEEDED Status: Active Protocol: Document 05/26/20 11:40 AB (Rec: 05/26/20 13:52 [id number]) Physical Therapy Treatment Exercises Exercises Heel Slides Education Education Provided Precautions,Weight Bearing Status,Post-Op Packet,Safety M7 PT-IP Assessment and Plan Start: 05/26/20 13:16 Freq: NEEDED Status: Active Protocol: Document 05/26/20 11:40 AB (Rec: 05/26/20 13:52 [id number]) PT Summary Assessment and Plan Potential Rehabilitation Potential Good Status of Condition at Evaluation Stable Summary Impairments Pain,ROM,Strength,Balance, Coordination,Sensation,Tone, Cognition,Bed Mobility, Transfers,Gait,Activity Tolerance Assessment Summary pt s/p L TKA and just had surgery this morning. pt requires SBA to CGA with mobility and plans to go home with spouse to assist her. pt stated that she has outpt PT scheduled already. pt also is hoping to be able to go home later today. pt may go home when stable. Goals Bed Mobility Goal Independent Transfer Goal Independent,Front Wheeled Walker Gait Goal Independent,Front Wheel Walker Gait Distance 150 Days to Meet Goals 3 Frequency of Treatment Frequency Of Treatment Twice a Day Treatment Plan Physical Therapy Treatment Plan Bed Mobility Training,Transfer Training,Gait Training, Therapeutic Exercise,Balance Retraining,Post Op Education, Discharge Planning,Hot or Cold Pack,Neuromuscular Re-ed, Coordination Retraining,Manual Therapy Recommendations To Nursing Amount of Assist Needed 1 Person Assist Discharge Recommendations PT Discharge Recommendations Home with Assistance, Outpatient PT Transportation Needs at Discharge Private Vehicle
[2020-05-26] MEDS: ACETAMINOPHEN 325 MG TABLET 650 MG PO (13:26)
--- NOTE | 2020-05-26 17:33 | PC.NURSE ---
discharge instruction given to patient. SBA-FWW. vitals stable. all belonging returned to patient.
== END 2020-05-26 17:22 | disposition home or self-care (01) ==
LOC: OR 06:20 → AC 07:29
PROVIDERS: PCP Internal Medicine; Referring Provider Internal Medicine; Visit Provider Orthopaedic Surgery
PROC: 0SRD0JZ Replacement of Left Knee Joint with Synthetic Substitute, Open Approach (ICD-10-PCS; CPT 27447; principal; 2020-05-26 07:45)
DX: M17.12 Unilateral primary osteoarthritis, left knee (principal); M85.80 Other specified disorders of bone density and structure, unspecified site; I10 Essential (primary) hypertension; E78.5 Hyperlipidemia, unspecified
CPT/HCPCS: 27447; 73560; 97161; C1776; C9290; J0690; J1100; J2250; J2405; J2704; J3010

== ENCOUNTER → 2020-09-03 14:29 | Outpatient (CLI) | payer OTHER, SELFPAY ==
[2020-05-26 11:07] VITALS: BMI 28.1
[2020-09-03] MEDS: COVID-19 VACC #1, MRNA(MOD) 100 MCG/0.5 ML VIAL IM (14:38)
== END ==
PROVIDERS: PCP Internal Medicine; Visit Provider Internal Medicine
DX: Z23 Encounter for immunization (principal)
CPT/HCPCS: 0011A; 91301

== ENCOUNTER → 2020-09-04 08:24 | Outpatient (CLI) | payer OTHER, SELFPAY ==
[2020-05-26 11:07] VITALS: BMI 28.1
[2020-09-04 10:27] LABS: Alanine Aminotransferase 18 IU/L (<35); Albumin Globulin Ratio 1.7 (1.0-2.8); Alkaline Phosphatase 124 U/L (38-126); Aspartate Aminotransferase 24 IU/L (14-36); BUN Creatinine Ratio 21.2 (6-22); Bilirubin Total 0.5 mg/dL (0.2-1.3); Blood Urea Nitrogen 14 mg/dL (7-17); Calcium 9.6 mg/dL (8.4-10.2); Carbon Dioxide 30 mmol/L (22-32); Chloride 105 mmol/L (98-107); Cholesterol 198 mg/dL (140-199); Estimated Glomerular Filt Rate > 60.0 mL/min (>60); Globulin 2.3 g/dL (1.7-4.1); Glucose 100 mg/dL (80-110); HDL Cholesterol 97 mg/dL (40-60); HEMOLYSIS < 15 (0-50); LDL Cholesterol Calculated 84 mg/dL (<100); Potassium 4.9 mmol/L (3.4-5.1); Sodium 138 mmol/L (137-145); Total Protein 6.3 g/dL (6.3-8.2); Triglycerides 86 mg/dL (35-150)
== END ==
PROVIDERS: PCP Internal Medicine; Referring Provider Internal Medicine; Visit Provider Internal Medicine
DX: I10 Essential (primary) hypertension (principal); E78.5 Hyperlipidemia, unspecified
CPT/HCPCS: 36415; 80053; 80061

== ENCOUNTER → 2020-10-01 15:16 | Outpatient (CLI) | payer OTHER, SELFPAY ==
[2020-05-26 11:07] VITALS: BMI 28.1
[2020-10-01] MEDS: COVID-19 VACC #2, MRNA(MOD) 100 MCG/0.5 ML VIAL IM (15:29)
== END ==
PROVIDERS: PCP Internal Medicine; Visit Provider Internal Medicine
DX: Z23 Encounter for immunization (principal)
CPT/HCPCS: 0012A; 91301

== ENCOUNTER → 2021-05-25 10:42 | Outpatient (CLI) | payer OTHER, SELFPAY ==
[2020-05-26 11:07] VITALS: BMI 28.1
--- NOTE | 2021-05-25 | DI.RAD.S_ITS ---
PROCEDURE: XR DEXA AXIAL SKELETON INDICATIONS: DISORDER OF BONE COMPARISON: None. FINDINGS: This blank DEXA report has been sent in error by the PACS system. The correct and complete report will be forthcoming in 1-2 days. Thank you for your patience and understanding. Dictated by: Estefany Huntley MD, PhD on 05/25/2021 at 12:49 Approved by: Estefany Huntley MD, PhD on 05/25/2021 at 12:50
== END ==
PROVIDERS: PCP Internal Medicine; Referring Provider Internal Medicine; Visit Provider Internal Medicine
DX: M85.852 Other specified disorders of bone density and structure, left thigh (principal); Z78.0 Asymptomatic menopausal state; Z87.891 Personal history of nicotine dependence
CPT/HCPCS: 77080

== ENCOUNTER → 2021-06-21 16:19 | Outpatient (CLI) | payer OTHER, SELFPAY ==
[2020-05-26 11:07] VITALS: BMI 28.1
--- NOTE | 2021-06-21 | DI.MG.S_ITS ---
BILATERAL DIGITAL SCREENING MAMMOGRAM 3D/2D WITH CAD: 06/21/2021 CLINICAL: Routine screening. Comparison is made to exams dated: 03/20/2018 mammogram - [facility], 06/28/2005 mammogram, and 05/29/2003 mammogram - [facility]. There are scattered fibroglandular elements in both breasts. Current study was also evaluated with a Computer Aided Detection (CAD) system. No significant masses, calcifications, or other findings are seen in either breast. There has been no significant interval change. IMPRESSION: NEGATIVE There is no mammographic evidence of malignancy. A 1 year screening mammogram is recommended. This exam was interpreted at Station ID: [id number]. NOTE: For mammograms, a report in lay terms will be sent to the patient. Approximately 15% of breast malignancies will not be visualized mammographically. In the management of a palpable breast mass, a negative mammogram must not discourage biopsy of a clinically suspicious lesion. Electronically Signed By: Chris kaur/kenneth:06/21/2021 16:50:20 letter sent: Normal Exam ACR BI-RADS Category 1: Negative [id number]
== END ==
PROVIDERS: PCP Internal Medicine; Referring Provider Internal Medicine; Visit Provider Internal Medicine
DX: Z12.31 Encounter for screening mammogram for malignant neoplasm of breast (principal)
CPT/HCPCS: 77063; 77067

== ENCOUNTER → 2022-07-10 07:55 | Outpatient (CLI) | payer OTHER, SELFPAY ==
[2020-05-26 11:07] VITALS: BMI 28.1
--- NOTE | 2022-07-10 | DI.MG.S_ITS ---
BILATERAL DIGITAL SCREENING MAMMOGRAM 3D/2D WITH CAD: 07/10/2022 CLINICAL: Routine screening. Comparison is made to exams dated: 06/21/2021 mammogram, 03/20/2018 mammogram - [facility], and 06/28/2005 mammogram - [facility]. There are scattered areas of fibroglandular density in both breasts (category b / 25%-50% glandular tissue). Current study was also evaluated with a Computer Aided Detection (CAD) system. No significant masses, calcifications, or other findings are seen in either breast. There has been no significant interval change. IMPRESSION: NEGATIVE There is no mammographic evidence of malignancy. A 1 year screening mammogram is recommended. Based on the Tyrer Cuzick model (a risk assessment model) the patient's lifetime risk is 3.1% and her 10 year risk is 0.0%. According to the ACR, ACS, and NCCN guidelines, an annual breast MRI exam along with mammogram is recommended if the patient's lifetime risk is 20% or greater. This exam was interpreted at Station ID: [id number]. NOTE: For mammograms, a report in lay terms will be sent to the patient. Approximately 15% of breast malignancies will not be visualized mammographically. In the management of a palpable breast mass, a negative mammogram must not discourage biopsy of a clinically suspicious lesion. Electronically Signed By: Jg Montana M.D., jr/kenneth:07/10/2022 11:27:46 letter sent: Normal Exam ACR BI-RADS Category 1: Negative [id number]
== END ==
PROVIDERS: PCP Internal Medicine; Referring Provider Internal Medicine; Visit Provider Internal Medicine
DX: Z12.31 Encounter for screening mammogram for malignant neoplasm of breast (principal)
CPT/HCPCS: 77063; 77067

== ENCOUNTER → 2022-08-19 12:41 | Outpatient (CLI) | payer OTHER, SELFPAY ==
[2020-05-26 11:07] VITALS: BMI 28.1
--- NOTE | 2022-08-19 13:14 | DI.MRI.S_ITS ---
PROCEDURE: MR ANKLE RT WO CON INDICATIONS: Achilles tendinitis, right leg TECHNIQUE: Noncontrast sagittal T1 spin echo and T2 fast spin echo with fat saturation, axial proton density fast spin echo and T2 fast spin echo with fat saturation, coronal T1 spin echo and T2 fast spin echo with fat saturation through the ankle/hindfoot. COMPARISON: [facility], CR, XR ANKLE 3 VIEWS WEIGHT BEARING RIGHT, 03/13/2022, 15:57. FINDINGS: Image quality: Excellent. Bones and joints: No bone marrow contusions or fractures. No hindfoot coalitions. Focal subchondral cystic changes are seen in the central talar dome measuring 8 x 4 x 4 mm. Overlying cartilage appears mildly irregular without a definite defect. The subchondral plate is intact. Overall, findings may represent focal degenerative changes. Medial structures: The deep and superficial layers of the deltoid ligament appear intact. The spring ligament components are intact. There is small amount of fluid surrounding the distal posterior tibialis tendon, consistent with tenosynovitis. The flexor digitorum longus and flexor hallucis longus tendons are intact. The posterior tibial neurovascular bundle appears normal within the tarsal tunnel, without extrinsic mass effect. Lateral structures: A small nonedematous ossification is seen adjacent to the distal fibular tip involving the lateral ankle ligament insertions, likely the sequela of a remote prior avulsion injury. The anterior and posterior tibiofibular ligaments are grossly intact. There is moderate peroneus brevis and longus tendinosis. The sinus tarsi demonstrates normal fatty signal, without edema, fibrosis, or cyst formation. Anterior structures: The tibialis anterior tendon appears thickened, consistent with mild tendinosis. The extensor hallucis longus and extensor digitorum longus tendons appear intact. The dorsal talonavicular ligament appears intact. A nonedematous posterior calcaneal enthesophyte is present. Posterior and plantar structures: The Achilles tendon is thickened at its midportion. There is focal intrasubstance fluid signal intensity approximately 5.6 cm above the calcaneal insertion involving approximately 15 % of the cross-sectional area of the tendon, consistent with partial intrasubstance tearing. The bulk of the tendon fibers are grossly intact. A small amount of fluid is seen within the tendon sheath. The plantaris tendon is not well visualized. There is thickening of the proximal plantar fascia without surrounding edema. No abductor digiti quinti muscle atrophy to suggest Schofield neuropathy. IMPRESSION: 1. Partial intrasubstance tearing at the midportion of the Achilles tendon superimposed on chronic tendinosis. The tear involves approximately 15% of the cross-sectional area of the tendon. 2. Moderate chronic proximal plantar fasciitis. 3. Small nonedematous ossification adjacent to the distal fibular tip involving the fibular attachments of the lateral ankle ligaments is consistent with a remote prior osseous avulsion injury. 4. Moderate peroneus brevis and longus tendinosis. 5. Mild distal tibialis anterior tendinosis. 6. Mild tenosynovitis of the distal posterior tibialis tendon. Approved by: Jeovanny Sanches M.D. on 08/21/2022 at 10:09
== END ==
PROVIDERS: PCP Internal Medicine; Referring Provider Orthopaedic Surgery Foot and Ankle Surgery; Visit Provider Orthopaedic Surgery Foot and Ankle Surgery
DX: S86.011A Strain of right Achilles tendon, initial encounter (principal); M72.2 Plantar fascial fibromatosis; M65.871 Other synovitis and tenosynovitis, right ankle and foot; M76.61 Achilles tendinitis, right leg
CPT/HCPCS: 73721

== ENCOUNTER → 2022-09-01 08:34 | Outpatient (CLI) | payer OTHER, SELFPAY ==
[2020-05-26 11:07] VITALS: BMI 28.1
== END ==
PROVIDERS: PCP Internal Medicine; Referring Provider Internal Medicine; Visit Provider Nurse Practitioner Family
DX: S81.811D Laceration without foreign body, right lower leg, subsequent encounter (principal)
CPT/HCPCS: 99203; 99213

== ENCOUNTER → 2022-09-20 13:10 | Outpatient (CLI) | payer OTHER, SELFPAY ==
[2020-05-26 11:07] VITALS: BMI 28.1
--- NOTE | 2022-09-20 | DI.MRI.S_ITS ---
PROCEDURE: MR SHOULDER LT WO CON INDICATIONS: Pain in left shoulder TECHNIQUE: Noncontrast oblique coronal T2 fast spin echo with fat saturation, oblique sagittal T1 spin echo and T2 fast spin echo with fat saturation, axial T1 spin echo and T2 fast spin echo with fat saturation through the shoulder. COMPARISON: None. FINDINGS: Image quality: Excellent. Rotator cuff: Low to moderate grade articular and bursal surface partial thickness tear involving distal supraspinatus at its insertion on the humeral head is seen extending to musculotendinous junction. Distal infraspinatus tendinosis. Distal subscapularis tendon is intact. No full-thickness rotator cuff tendon rupture. Sagittal images demonstrate mild supraspinatus muscle atrophy. Bones and bursae: No bone marrow contusions or fractures. Moderate acromioclavicular joint osteoarthritic changes are seen with joint space narrowing, subchondral sclerosis and cyst formation and downward osteophyte formation depressing the musculotendinous junction of supraspinatus. There is small amount of subacromial subdeltoid bursal fluid. Capsule and soft tissues: Signal abnormality and contour irregularity involving posterior superior labrum at 10 to 11 o'clock position is seen. Similar signal abnormality and contour irregularity involving superior anterior labrum at 12 to 1 o'clock position is also noted. The long head of the biceps tendon demonstrates normal location and morphology. The rotator interval appears normal, without fibrosis. The coracohumeral ligament is normal in thickness. IMPRESSION: 1. Low to moderate grade articular and bursal surface partial thickness tear involving distal supraspinatus extending to musculotendinous junction. Distal infraspinatus tendinosis. No full-thickness rotator cuff tendon rupture. Mild supraspinatus muscle atrophy. 2. Moderate acromioclavicular joint osteoarthritis. Small amount of joint effusion and subacromial subdeltoid bursal fluid. No fracture or dislocation. 3. Suggestion of superior anterior labral tear at 12 to 1 o'clock position and posterior superior labral tear at 10 to 11 o'clock position. Dictated by: Terrell Brown M.D. on 09/20/2022 at 15:55 Approved by: Terrell Brown M.D. on 09/20/2022 at 16:22
== END ==
PROVIDERS: PCP Internal Medicine; Referring Provider Orthopaedic Surgery; Visit Provider Orthopaedic Surgery
DX: M75.112 Incomplete rotator cuff tear or rupture of left shoulder, not specified as traumatic (principal); M19.012 Primary osteoarthritis, left shoulder; M25.512 Pain in left shoulder; M25.412 Effusion, left shoulder
CPT/HCPCS: 73221

== ENCOUNTER 2022-10-07 18:49 | Emergency (ER) | payer OTHER, SELFPAY ==
[2020-05-26 11:07] VITALS: BMI 28.1
[2022-10-07] VITALS (15 sets, daily range): BP systolic 88–145; BP diastolic 53–90; PULSE 63–81; RESP 16; TEMP 36.6–36.9; O2SAT 94–99; BMI 28.0
--- NOTE | 2022-10-07 18:53 | DI.RAD.S_ITS ---
PROCEDURE: XR CHEST 1V INDICATIONS: weakness, syncope TECHNIQUE: One view of the chest was acquired. COMPARISON: None. FINDINGS: Surgical changes and devices: None. Lungs and pleura: Lungs are clear. No pleural effusions or pneumothorax. Mediastinum: Mediastinal contours appear normal. Heart size is normal. Bones and chest wall: No suspicious bony lesions. Overlying soft tissues appear unremarkable. IMPRESSION: No acute cardiopulmonary abnormality. Dictated by: Jeovanny Branch M.D. on 10/07/2022 at 19:34 Approved by: Jeovanny Branch M.D. on 10/07/2022 at 19:35
--- NOTE | 2022-10-07 18:53 | ED.GENADULT ---
HPI - General Adult General Chief complaint: Syncope Stated complaint: syncope s/p edible Time Seen by Provider: 10/07/22 18:52 History of Present Illness HPI narrative: 69-year-old female former smoker with history of hypertension, hyperlipidemia presents with a syncopal or near syncopal episode this afternoon. She states that she had been in her normal state of health, ate lunch as normal and took some THC which she does not routinely do, she additionally had at least 1 glass of wine. She states that she was sitting at a table and had been feeling a bit warm and flushed and then started feeling lightheaded and had brief episode, she did not injure herself or hit the ground, she was stabilized by her friends that were with her. On arrival paramedics found her systolic blood pressure to be in the 90s. She is feeling a bit better here. She does admit that she had 1 prior episode where she combined both THC and wine and had a syncopal episode that time as well. She denies any recent travel, trauma or injury. She takes no blood thinners. She is had no fever or chills. Related Data Home Medications Medication Instructions Recorded Confirmed atorvastatin 20 mg tablet 20 mg PO BEDTIME 05/20/19 08/16/22 cetirizine 10 mg tablet 10 mg PO DAILY 05/20/19 08/16/22 diphenhydramine HCl 25 mg capsule 25 mg PO BEDTIME PRN Sleep 05/20/19 08/16/22 (Benadryl) fluticasone propionate 50 1 spray intranasal DAILY 05/20/19 08/16/22 mcg/actuation nasal spray,suspension (Flonase Allergy Relief) ibuprofen 200 mg tablet 400 mg PO BID-TID PRN Pain 05/20/19 08/16/22 losartan 50 mg tablet 100 mg PO QAM 05/20/19 08/16/22 Previous Rx's Medication Instructions Recorded acetaminophen 325 mg tablet 650 mg PO TID #40 tabs 05/26/20 aspirin 81 mg tablet,delayed 81 mg PO BID #40 tabs 05/26/20 release docusate sodium 100 mg capsule 100 mg PO BID #40 caps 05/26/20 (DOK) ibuprofen 400 mg tablet 400 mg PO Q4HR #40 tabs 05/26/20 oxycodone 5 mg tablet 5 mg PO Q3HR PRN Pain, Moderate 05/26/20 (4-6) #1 tab mupirocin 2 % topical ointment 1 applic topical TID 10 days #22 08/12/22 grams Allergies Allergy/AdvReac Type Severity Reaction Status Date / Time adhesive tape AdvReac Severe Tape Verified 08/16/22 07:06 tears my skin off Metal Allergy Severe Rash, Uncoded 08/16/22 07:06 itching, Can only wear Gold Review of Systems Review of Systems Narrative: GENERAL: See HPI HEENT: Denies sinus pain, ear pain, sore throat, difficulty swallowing, dizziness. RESPIRATORY: Denies dyspnea, cough, wheezing, hemoptysis, sputum. CARDIOVASCULAR: See HPI GASTROINTESTINAL: Denies nausea, vomiting, abdominal pain, diarrhea, constipation, melena. : Denies dysuria, frequency, incontinence, hematuria, urinary retention. MUSCULOSKELETAL: denies weakness, joint pain, or bony pain SKIN: Denies rash, skin lesions, or other NEUROLOGIC: Denies weakness, headache, numbness, change in speech, confusion, seizures, incoordination. PSYCHIATRIC: No concerning psychosocial issues. 12 point review of systems is negative except for those stated above Patient History Medical History Easy bruisability Encounter for IUD removal HLD (hyperlipidemia) HTN (hypertension) Kidney stone Osteoarthritis Patellar fracture (~1994) Seasonal allergies Senile purpura Surgical History History of arthroplasty of right knee (06/04/19) Hx of lithotripsy Hx of right knee surgery Social History household members: significant other Smoking Status: Former smoker alcohol intake: current Smoking Status: Former smoker alcohol intake frequency: 0-2 drinks per day Substance Use Type: marijuana Exam Narrative Exam Narrative: GENERAL: [77] year old patient appears stated age. Well-developed patient, in mild distress. HEAD: Atraumatic. Normocephalic. EYES: Pupils equal round and reactive. Extraocular motions intact. No scleral icterus. No injection or drainage. ENT: Nose without bleeding, purulent drainage. Throat without erythema, tonsillar hypertrophy or exudate. Airway patent. NECK: Trachea midline. Non tender CARDIOVASCULAR: Regular rate and rhythm without murmurs, gallops, or rubs. RESPIRATORY: Clear to auscultation. Breath sounds equal bilaterally. No wheezes, rales, or rhonchi. GASTROINTESTINAL: Abdomen soft, non-tender, nondistended. EXTREMITIES: No edema or joint tenderness. BACK: Nontender without deformity or crepitance. No flank tenderness. NEURO: AOx3. SKIN: No rash or erythema of visible areas Initial Vital Signs Initial Vital Signs: Vital Signs Pulse Rate 65 10/07/22 18:53 Blood Pressure 99/57 L 10/07/22 18:53 Pulse Oximetry 97 10/07/22 18:53 Course Orders Ordered: ED Orders 10/07/22 18:52 EKG-12 Lead Stat 10/07/22 18:53 XR chest 1V Stat 10/07/22 18:59 Complete Blood Count AUTO DIFF Stat Comprehensive Metabolic Panel Stat Troponin & CK Cardiac Panel Stat 10/07/22 19:50 Urinalysis Screen (Dip Only) Stat Urine Culture Stat Urine Drug Screen, Rapid Stat Urine Microscopic Stat Discontinued Medications Sodium Chloride (Normal Saline 0.9%) 1,000 mls @ 150 mls/hr IV CONT ERNESTINA Last Admin: 10/07/22 19:20 Dose: Not Given Documented By: NR Reevaluation(s) Reevaluation #1: Significant improvement after fluids. She is no longer orthostatic, ambulatory in the department, feeling much better requesting discharge Vital Signs Vital signs: Vital Signs - 8 hr 10/07/22 18:54 10/07/22 18:53 10/07/22 18:53 Temperature 98.4 F Pulse Rate 66 65 Pulse Rate [Orthostatic Lying] Pulse Rate [Orthostatic Sitting] Pulse Rate [Orthostatic Standing] Respiratory Rate 16 Blood Pressure 99/57 L 99/57 L Blood Pressure [Orthostatic Lying] Blood Pressure [Orthostatic Sitting] Blood Pressure [Orthostatic Standing] Pulse Oximetry 98 97 Oxygen Delivery Method Room Air 10/07/22 19:00 10/07/22 19:01 10/07/22 19:01 Temperature Pulse Rate 67 66 Pulse Rate [Orthostatic Lying] Pulse Rate [Orthostatic Sitting] Pulse Rate [Orthostatic Standing] Respiratory Rate Blood Pressure 88/53 L Blood Pressure [Orthostatic Lying] Blood Pressure [Orthostatic Sitting] Blood Pressure [Orthostatic Standing] Pulse Oximetry 97 98 Oxygen Delivery Method 10/07/22 19:10 10/07/22 19:10 10/07/22 19:54 Temperature Pulse Rate 63 Pulse Rate [Orthostatic Lying] 68 Pulse Rate [Orthostatic Sitting] 80 Pulse Rate [Orthostatic Standing] 80 Respiratory Rate Blood Pressure 97/53 L Blood Pressure [Orthostatic Lying] 145/66 H Blood Pressure [Orthostatic Sitting] 130/63 Blood Pressure [Orthostatic Standing] 135/70 Pulse Oximetry 94 Oxygen Delivery Method 10/07/22 20:37 10/07/22 19:20 10/07/22 19:20 Temperature 98 F Pulse Rate 73 67 Pulse Rate [Orthostatic Lying] Pulse Rate [Orthostatic Sitting] Pulse Rate [Orthostatic Standing] Respiratory Rate 16 Blood Pressure 129/90 107/55 L Blood Pressure [Orthostatic Lying] Blood Pressure [Orthostatic Sitting] Blood Pressure [Orthostatic Standing] Pulse Oximetry 98 97 Oxygen Delivery Method Room Air 10/07/22 19:30 10/07/22 19:30 10/07/22 19:40 Temperature Pulse Rate 68 Pulse Rate [Orthostatic Lying] Pulse Rate [Orthostatic Sitting] Pulse Rate [Orthostatic Standing] Respiratory Rate Blood Pressure 107/54 L 117/58 L Blood Pressure [Orthostatic Lying] Blood Pressure [Orthostatic Sitting] Blood Pressure [Orthostatic Standing] Pulse Oximetry 96 Oxygen Delivery Method 10/07/22 19:40 10/07/22 19:49 10/07/22 19:49 Temperature Pulse Rate 74 77 Pulse Rate [Orthostatic Lying] Pulse Rate [Orthostatic Sitting] Pulse Rate [Orthostatic Standing] Respiratory Rate Blood Pressure 145/66 H Blood Pressure [Orthostatic Lying] Blood Pressure [Orthostatic Sitting] Blood Pressure [Orthostatic Standing] Pulse Oximetry 96 98 Oxygen Delivery Method 10/07/22 19:50 10/07/22 19:50 10/07/22 19:51 Temperature Pulse Rate 81 Pulse Rate [Orthostatic Lying] Pulse Rate [Orthostatic Sitting] Pulse Rate [Orthostatic Standing] Respiratory Rate Blood Pressure 130/63 135/70 Blood Pressure [Orthostatic Lying] Blood Pressure [Orthostatic Sitting] Blood Pressure [Orthostatic Standing] Pulse Oximetry 98 Oxygen Delivery Method 10/07/22 19:51 10/07/22 20:00 10/07/22 20:28 Temperature Pulse Rate 79 72 73 Pulse Rate [Orthostatic Lying] Pulse Rate [Orthostatic Sitting] Pulse Rate [Orthostatic Standing] Respiratory Rate Blood Pressure Blood Pressure [Orthostatic Lying] Blood Pressure [Orthostatic Sitting] Blood Pressure [Orthostatic Standing] Pulse Oximetry 99 98 98 Oxygen Delivery Method 10/07/22 20:28 Temperature Pulse Rate Pulse Rate [Orthostatic Lying] Pulse Rate [Orthostatic Sitting] Pulse Rate [Orthostatic Standing] Respiratory Rate Blood Pressure 129/90 Blood Pressure [Orthostatic Lying] Blood Pressure [Orthostatic Sitting] Blood Pressure [Orthostatic Standing] Pulse Oximetry Oxygen Delivery Method Medical Decision Making Lab Data 10/07/22 18:59 10/07/22 18:59 Labs: Lab Results 10/07/22 10/07/22 10/07/22 Range/Units 18:59 18:59 19:50 WBC 9.6 (4.5-11.0) X10^3/uL RBC 4.34 (4.0-5.2) X10^6/uL Hgb 13.0 (12.0-16.0) g/dL Hct 39.6 (36-46) % MCV 91.1 (80-100) fL MCH 29.8 (26-34) PG MCHC 32.8 (30-36) % RDW 13.0 (11.6-14.8) % Plt Count 264 (150-400) X10^3/uL Neut % (Auto) 50.0 (50-75) % Lymph % (Auto) 40.3 H (25-40) % [place] % (Auto) 7.7 (3-14) % Eos % (Auto) 1.4 L (2-4) % Baso % (Auto) 0.6 (0-2) % Neut # (Auto) 4800 (3298-9529) /uL Lymph # (Auto) 3900 (5483-6681) /uL [place] # (Auto) 700 (0-900) /uL Eos # (Auto) 100 (0-450) /uL Baso # (Auto) 100 (0-100) /uL Sodium 141 (137-145) mmol/L Potassium 3.8 (3.4-5.1) mmol/L Chloride 102 (98-107) mmol/L Carbon Dioxide 24 (22-32) mmol/L BUN 13 (7-17) mg/dL Creatinine 0.96 (0.52-1.04) mg/dL Estimated GFR > 60 (>60) mL/min BUN/Creatinine Ratio 13.5 (6-22) Glucose 133 H (80-110) mg/dL Calcium 9.6 (8.4-10.2) mg/dL Total Bilirubin 0.5 (0.2-1.3) mg/dL AST 36 (14-36) IU/L ALT 40 H (<35) IU/L Alkaline Phosphatase 99 (38-126) U/L Total Creatine Kinase 40 (30-135) U/L CK-MB (CK-2) TNP CK-MB (CK-2) Rel Index TNP Troponin I < 0.012 (0.01-0.034) ng/mL Total Protein 7.4 (6.3-8.2) g/dL Albumin 4.4 (3.5-5.0) g/dL Globulin 3.0 (1.7-4.1) g/dL Albumin/Globulin Ratio 1.5 (1.0-2.8) Urine Color Yellow Urine Appearance Clear Urine pH 5.5 (4.5-8.0) Ur Specific [place] >=1.030 H (1.000-1.035) Urine Protein Trace H (Negative) Urine Glucose (UA) Negative (Negative) g/dL Urine Ketones Negative (NEGATIVE) Urine Occult Blood Negative (Negative) Urine Nitrate Negative (Negative) Urine Bilirubin Negative (NEGATIVE) Urine Urobilinogen 0.2 (0.2) E.U./dL Ur Leukocyte Esterase 1+ H (NEGATIVE) Urine RBC 0-1/hpf (0-5/HPF) Urine WBC 5-10/hpf H (0-5/HPF) Ur Squamous Epith Cells 0-1 /hpf (0-5/HPF) Urine Bacteria Moderate (10-30) H (None) Hyaline Casts 30-100/lpf (None) Ur Culture Indicated? Specimen cultured U Opiates 300ng/mL cut (Negative) Ur Oxycodone Screen (Negative) Urine Methadone Screen (Negative) Ur Barbiturates Screen (Negative) U Tricyclic Antidepress (Negative) Ur Phencyclidine Scrn (Negative) Ur Amphetamines Screen (Negative) U Methamphetamines Scrn (Negative) Ur MDMA Scrn (Ecstasy) (Negative) U Benzodiazepines Scrn (Negative) Urine Cocaine Screen (Negative) U Marijuana (THC) Screen (Negative) 10/07/22 Range/Units 19:50 WBC (4.5-11.0) X10^3/uL RBC (4.0-5.2) X10^6/uL Hgb (12.0-16.0) g/dL Hct (36-46) % MCV (80-100) fL MCH (26-34) PG MCHC (30-36) % RDW (11.6-14.8) % Plt Count (150-400) X10^3/uL Neut % (Auto) (50-75) % Lymph % (Auto) (25-40) % [place] % (Auto) (3-14) % Eos % (Auto) (2-4) % Baso % (Auto) (0-2) % Neut # (Auto) (9469-5858) /uL Lymph # (Auto) (0396-4378) /uL [place] # (Auto) (0-900) /uL Eos # (Auto) (0-450) /uL Baso # (Auto) (0-100) /uL Sodium (137-145) mmol/L Potassium (3.4-5.1) mmol/L Chloride (98-107) mmol/L Carbon Dioxide (22-32) mmol/L BUN (7-17) mg/dL Creatinine (0.52-1.04) mg/dL Estimated GFR (>60) mL/min BUN/Creatinine Ratio (6-22) Glucose (80-110) mg/dL Calcium (8.4-10.2) mg/dL Total Bilirubin (0.2-1.3) mg/dL AST (14-36) IU/L ALT (<35) IU/L Alkaline Phosphatase (38-126) U/L Total Creatine Kinase (30-135) U/L CK-MB (CK-2) CK-MB (CK-2) Rel Index Troponin I (0.01-0.034) ng/mL Total Protein (6.3-8.2) g/dL Albumin (3.5-5.0) g/dL Globulin (1.7-4.1) g/dL Albumin/Globulin Ratio (1.0-2.8) Urine Color Urine Appearance Urine pH (4.5-8.0) Ur Specific [place] (1.000-1.035) Urine Protein (Negative) Urine Glucose (UA) (Negative) g/dL Urine Ketones (NEGATIVE) Urine Occult Blood (Negative) Urine Nitrate (Negative) Urine Bilirubin (NEGATIVE) Urine Urobilinogen (0.2) E.U./dL Ur Leukocyte Esterase (NEGATIVE) Urine RBC (0-5/HPF) Urine WBC (0-5/HPF) Ur Squamous Epith Cells (0-5/HPF) Urine Bacteria (None) Hyaline Casts (None) Ur Culture Indicated? U Opiates 300ng/mL cut Negative (Negative) Ur Oxycodone Screen Negative (Negative) Urine Methadone Screen Negative (Negative) Ur Barbiturates Screen Negative (Negative) U Tricyclic Antidepress Negative (Negative) Ur Phencyclidine Scrn Negative (Negative) Ur Amphetamines Screen Negative (Negative) U Methamphetamines Scrn Negative (Negative) Ur MDMA Scrn (Ecstasy) Negative (Negative) U Benzodiazepines Scrn Negative (Negative) Urine Cocaine Screen Negative (Negative) U Marijuana (THC) Screen Positive H (Negative) Urine Dip Bedside Urine Glucose Negative Bedside Urine Bilirubin - Negative Bedside Urine Ketone - Negative Urine Specific [place] 1.025 Bedside Urine Occult Blood - Negative Bedside Urine pH 6.0 Bedside Urine Protein + 30 Bedside Urine Urobilinogen - Negative Bedside Urine Nitrite - Negative Bedside Urine Leukocytes + 70 Esterase Point of care testing: Urine Dip Bedside Urine Glucose Negative Bedside Urine Bilirubin - Negative Bedside Urine Ketone - Negative Urine Specific [place] 1.025 Bedside Urine Occult Blood - Negative Bedside Urine pH 6.0 Bedside Urine Protein + 30 Bedside Urine Urobilinogen - Negative Bedside Urine Nitrite - Negative Bedside Urine Leukocytes + 70 Esterase MDM Narrative Medical decision making narrative: CC: 77-year-old female with syncope versus presyncope Complicating co-morbidities: Age, hypertension, hyperlipidemia Data collected from: Patient Medical records reviewed: Prior notes reviewed in our EMR Differential considered, but not limited to: Dehydration, intolerance combination of THC and alcohol, electrolyte abnormality versus other Exam documented above, pertinent findings include: Moist mucous membranes, heart rate regular, no increased work of breathing, abdomen soft and nontender Lab Test results independently reviewed as above. Pertinent findings: No significant abnormal findings requiring specific or immediate intervention Independently reviewed EKG as above Imaging studies independently reviewed: NAP Treatments: Fluids Re-evaluations: Significant improvement, no longer orthostatic Discussion: 77-year-old female with a near syncopal episode. She admits that she has had much less water than she typically would on today's such as this and had significant if not complete improvement after IV fluids raising the suspicion of dehydration playing a role. Furthermore she did have THC and alcohol and states that last time she combine these 2 she had a very similar reaction. Labs are very reassuring as is response to therapy. Cardiac arrhythmia considered but thought unlikely given the prodromal symptoms patient experienced as well as remainder of history, physical and labs. Disposition: see below, along with detailed discharge instructions that have been reviewed with patient as well as indications for ED re-evaluation and additional outpatient follow up Discharge Plan Departure Patient Disposition: Home Clinical Impression: Syncope due to orthostatic hypotension Instructions: DI for Syncope in Adults (Fainting) Activity Restrictions/Additional Instructions: *You have been diagnosed with [syncope due to low blood pressure likely a combination of dehydration and other] *What to do: *Please continue to take your regular medications as directed. *Please follow up with your primary care provider in 2-3 days, call for an appointment. Let them know you were seen in the Emergency Department and that we ask that you be seen in follow up. We will electronically transmit a record of today's note if your PCP is in our system *If you do not have a primary care provider please contact the [facility] Resource line at [phone]. They will ask some questions about your medical history and help get you set up with a doctor in the community. *Return to Emergency Department if you should have any new, worsening or concerning symptoms, such as [fever greater than 101 F, shaking chills, worsening pain, persistent vomiting or other bothersome symptoms] Prescriptions: No Action mupirocin 2 % ointment 1 applic topical TID 10 Days Qty: 22 2RF losartan 50 mg Tablet 100 mg PO QAM atorvastatin 20 mg Tablet 20 mg PO BEDTIME cetirizine 10 mg Tablet 10 mg PO DAILY diphenhydramine HCl [Benadryl] 25 mg Capsule 25 mg PO BEDTIME PRN (Reason: Sleep) ibuprofen 200 mg Tablet 400 mg PO BID-TID PRN (Reason: Pain) fluticasone propionate [Flonase Allergy Relief] 50 mcg/actuation [place],Suspension 1 spray INTRANASAL DAILY acetaminophen 325 mg Tablet 650 mg PO TID Qty: 40 0RF aspirin 81 mg Tablet,Delayed Release (Dr/Ec) 81 mg PO BID Qty: 40 0RF ibuprofen 400 mg Tablet 400 mg PO Q4HR Qty: 40 0RF docusate sodium [DOK] 100 mg Capsule 100 mg PO BID Qty: 40 0RF oxycodone 5 mg Tablet 5 mg PO Q3HR PRN (Reason: Pain, Moderate (4-6)) Qty: 1 0RF Referrals: Mi Rodriguez MD [Primary Care Provider] - Stand Alone Forms: Patient Portal/API
[2022-10-07 19:04] LABS: Add Manual Diff / Slide Review NO; Basophils Absolute Auto 100 /uL (0-100); Basophils Percent Auto 0.6 % (0-2); Eosinophils Absolute Auto 100 /uL (0-450); Eosinophils Percent Auto 1.4 % (2-4); Hematocrit 39.6 % (36-46); Lymphocytes Absolute Auto 3900 /uL (1100-4500); Lymphocytes Percent Auto 40.3 % (25-40); Mean Corpuscular HGB Conc 32.8 % (30-36); Mean Corpuscular Hemoglobin 29.8 PG (26-34); Mean Corpuscular Volume 91.1 fL (80-100); Monocytes Absolute Auto 700 /uL (0-900); Monocytes Percent Auto 7.7 % (3-14); Neutrophils Absolute Auto 4800 /uL (1500-7000); Platelet Count 264 X10^3/uL (150-400); Red Blood Cell Count 4.34 X10^6/uL (4.0-5.2); White Blood Cell Count 9.6 X10^3/uL (4.5-11.0)
[2022-10-07 19:16] LABS: Alanine Aminotransferase 40 IU/L (<35); Albumin 4.4 g/dL (3.5-5.0); Albumin Globulin Ratio 1.5 (1.0-2.8); Alkaline Phosphatase 99 U/L (38-126); Aspartate Aminotransferase 36 IU/L (14-36); BUN Creatinine Ratio 13.5 (6-22); Bilirubin Total 0.5 mg/dL (0.2-1.3); Blood Urea Nitrogen 13 mg/dL (7-17); Calcium 9.6 mg/dL (8.4-10.2); Carbon Dioxide 24 mmol/L (22-32); Chloride 102 mmol/L (98-107); Creatine Kinase 40 U/L (30-135); Estimated Glomerular Filt Rate > 60 mL/min (>60); Glucose 133 mg/dL (80-110); HEMOLYSIS < 15 (0-50); Potassium 3.8 mmol/L (3.4-5.1); Sodium 141 mmol/L (137-145); Total Protein 7.4 g/dL (6.3-8.2)
--- NOTE | 2022-10-07 19:19 | PC.NURSE ---
1000ml bolus of normal saline given from EMS bag.
[2022-10-07 19:27] LABS: Troponin I < 0.012 ng/mL (0.01-0.034)
[2022-10-07 20:07] LABS: Appearance Urine UA CLEAR; Bilirubin Urine UA NEGATIVE (NEGATIVE); Color Urine UA YELLOW; Glucose Urine UA NEGATIVE (Negative); Ketones Urine UA NEGATIVE (NEGATIVE); Leukocyte Esterase Urine UA 1+ (NEGATIVE); Nitrite Urine UA NEGATIVE (Negative); Occult Blood Urine UA NEGATIVE (Negative); Protein Urine UA TRACE (Negative); Specific Gravity Urine UA >=1.030 (1.000-1.035); Urobilinogen Urine UA 0.2 E.U./dL (0.2)
[2022-10-07 20:08] LABS: pH Urine UA 5.5 (4.5-8.0)
[2022-10-07 20:11] LABS: UR Morphine/Opiate cutoff 300 Negative (Negative); Ur Creatinine Normal (Normal); Ur Specific Gravity Normal (Normal); Urine Amphetamines Negative (Negative); Urine Barbiturates Negative (Negative); Urine Benzodiazepines Negative (Negative); Urine Cocaine Negative (Negative); Urine MDMA Negative (Negative); Urine Methadone Negative (Negative); Urine Methamphetamines Negative (Negative); Urine Oxycodone Negative (Negative); Urine Phencyclidine Negative (Negative); Urine Tetrahydrocannabinol Positive (Negative); Urine Tricyclic Antidepressant Negative (Negative); Urine pH Normal (Normal)
[2022-10-07 20:19] LABS: Bacteria Urine Moderate (10-30); RBC Urine 0-1/HPF (0-5/HPF); Squamous Epithelial Cell Urine 0-1 /HPF (0-5/HPF); WBC Urine 5-10/HPF (0-5/HPF)
[2022-10-07 20:20] LABS: Culture Indicated Urine Specimen Cultured; Hyaline Casts Urine 30-100/LPF
== END 2022-10-07 20:39 | disposition home or self-care (01) ==
PROVIDERS: Emergency Provider Emergency Medicine; PCP Internal Medicine
DX: I95.1 Orthostatic hypotension (principal)
CPT/HCPCS: 71045; 80053; 80305; 81003; 81015; 82550; 84484; 85025; 87086; 93005; 99284

== ENCOUNTER → 2023-07-20 08:55 | Outpatient (CLI) | payer OTHER, SELFPAY ==
[2020-05-26 11:07] VITALS: BMI 28.1
== END ==
PROVIDERS: PCP Internal Medicine; Referring Provider Internal Medicine; Visit Provider Physician Assistant
DX: S81.811A Laceration without foreign body, right lower leg, initial encounter (principal)
CPT/HCPCS: 11042; 99213; 99214

== ENCOUNTER → 2023-07-27 09:35 | Outpatient (CLI) | payer OTHER, SELFPAY ==
[2020-05-26 11:07] VITALS: BMI 28.1
== END ==
PROVIDERS: PCP Internal Medicine; Referring Provider Internal Medicine; Visit Provider Physician Assistant
DX: S81.811A Laceration without foreign body, right lower leg, initial encounter (principal)
CPT/HCPCS: 11042; 99213

== ENCOUNTER → 2023-07-27 12:50 | Outpatient (CLI) | payer OTHER, SELFPAY ==
[2020-05-26 11:07] VITALS: BMI 28.1
--- NOTE | 2023-07-27 | DI.MG.S_ITS ---
BILATERAL DIGITAL SCREENING MAMMOGRAM 3D/2D WITH CAD: 07/27/2023 CLINICAL: Routine screening. Comparison is made to exams dated: 07/10/2022 mammogram, 06/21/2021 mammogram, and 03/20/2018 mammogram - [facility]. There are scattered areas of fibroglandular density in both breasts (category b / 25%-50% glandular tissue). Current study was also evaluated with a Computer Aided Detection (CAD) system. No significant masses, calcifications, or other findings are seen in either breast. There has been no significant interval change. IMPRESSION: NEGATIVE There is no mammographic evidence of malignancy. A 1 year screening mammogram is recommended. Based on the Tyrer Cuzick model (a risk assessment model) the patient's lifetime risk is 2.7% and her 10 year risk is 0.0%. According to the ACR, ACS, and NCCN guidelines, an annual breast MRI exam along with mammogram is recommended if the patient's lifetime risk is 20% or greater. This exam was interpreted at Station ID: [id number]. NOTE: For mammograms, a report in lay terms will be sent to the patient. Approximately 15% of breast malignancies will not be visualized mammographically. In the management of a palpable breast mass, a negative mammogram must not discourage biopsy of a clinically suspicious lesion. Electronically Signed By: Jessie Childers M.D., PH.D peggy/kenneth:07/29/2023 14:37:17 letter sent: Normal Exam ACR BI-RADS Category 1: Negative [id number]
== END ==
PROVIDERS: PCP Internal Medicine; Referring Provider Internal Medicine; Visit Provider Internal Medicine
DX: Z12.31 Encounter for screening mammogram for malignant neoplasm of breast (principal); S81.811A Laceration without foreign body, right lower leg, initial encounter
CPT/HCPCS: 11042; 77063; 77067

== ENCOUNTER → 2024-04-11 15:15 | Outpatient (CLI) | payer OTHER, SELFPAY ==
[2020-05-26 11:07] VITALS: BMI 28.1
--- NOTE | 2024-04-11 15:16 | DI.RAD.S_ITS ---
PROCEDURE: XR DEXA AXIAL SKELETON INDICATIONS: FU ON OSTEOPENIA COMPARISON: [facility], CR, XR DEXA AXIAL SKELETON, 05/25/2021, 11:21. FINDINGS: Lumbar Spine: Bone mineral density 1.041 g/cm2, T score -0.1, there is interval 5.3 percent decrease in total lumbar spine bone density. Left Hip: Bone mineral density 0.671 g/cm2, T score -2.2. There is interval 1.3 percent increase in total left hip bone mineral density. Left Femoral Neck: Bone mineral density 0.534 g/cm2, T score -2.8. There is interval 8.1 percent decrease in left femoral neck bone mineral density. Right Hip: Bone mineral density 0.691 g/cm2, T score -2.1. There is interval 3.2 percent increase in right total hip bone density. Right Femoral Neck: Bone mineral density 0.637 g/cm2, T score -1.9. There is interval 1.1 percent increase in right femoral neck bone density. Fracture Risk Calculation (when applicable): 10-year fracture risk of a major osteoporotic fracture 40 percent and of a hip fracture 29 percent. (T score greater or equal to -1.0 to: NORMAL) (T score from -1.1 to -2.4: OSTEOPENIA) (T score less than or equal to -2.5: OSTEOPOROSIS) IMPRESSION: Osteoporosis. Follow-up guidelines as follows: Osteoporosis: Consider a repeat DEXA and Vertebral Fracture Assessment (VFA) exam in 2 years or sooner if medically necessary, to reassess this patient's status. Osteopenia: Consider a repeat DEXA in 2-3 years to reassess this patient's status, or if there is a new clinical indication. Normal: Consider a repeat DEXA in 5 years or sooner, or if there is a new clinical indication. All treatment decisions require clinical judgment and consideration of individual patient factors, including patient preferences, comorbidities, previous drug use, risk factors not captured in the FRAX model (e.g., frailty, falls, vitamin D deficiency, increased bone turnover, interval significant decline in bone density ) and possible under- or over-estimation of fracture risk by FRAX. In addition, the NOF Guide recommends that FDA-approved medical therapies be considered in postmenopausal women and men age >= 50 years with a: * Hip or vertebral (clinical or morphometric) fracture * T-score of <=-2.5 at the spine or hip * Ten-year fracture probability by FRAX of >= 3% for hip fracture or >=20% for major osteoporotic fracture. People with diagnosed cases of osteoporosis or at high risk for fracture should have regular bone mineral density tests. For patients eligible for Medicare, routine testing is allowed once every 2 years. The testing frequency can be increased to one year for patients who have rapidly progressing disease, those who are receiving or discontinuing medical therapy to restore bone mass, or have additional risk factors. Dictated by: Terrell Brown M.D. on 04/11/2024 at 17:29 Approved by: Terrell Brown M.D. on 04/11/2024 at 17:32
== END ==
PROVIDERS: PCP Internal Medicine; Referring Provider Internal Medicine; Visit Provider Internal Medicine
DX: M81.0 Age-related osteoporosis without current pathological fracture (principal); Z78.0 Asymptomatic menopausal state
CPT/HCPCS: 77080

== ENCOUNTER → 2024-07-30 15:02 | Outpatient (CLI) | payer OTHER, SELFPAY ==
[2020-05-26 11:07] VITALS: BMI 28.1
--- NOTE | 2024-07-30 15:03 | DI.MG.S_ITS ---
BILATERAL DIGITAL SCREENING MAMMOGRAM 3D/2D WITH CAD: 07/30/2024 CLINICAL: Routine screening. Comparison is made to exams dated: 07/27/2023 mammogram, 07/10/2022 mammogram, and 06/21/2021 mammogram - [facility]. There are scattered areas of fibroglandular density (category b / 25%-50% glandular tissue). Current study was also evaluated with a Computer Aided Detection (CAD) system. No significant masses, calcifications, or other findings are seen in either breast. There has been no significant interval change. IMPRESSION: NEGATIVE There is no mammographic evidence of malignancy. A 1 year screening mammogram is recommended. Based on the Tyrer Cuzick model (a risk assessment model) the patient's lifetime risk is 2.3% and her 10 year risk is 0.0%. According to the ACR, ACS, and NCCN guidelines, an annual breast MRI exam along with mammogram is recommended if the patient's lifetime risk is 20% or greater. This exam was interpreted at Station ID: [id number]. NOTE: For mammograms, a report in lay terms will be sent to the patient. Approximately 15% of breast malignancies will not be visualized mammographically. In the management of a palpable breast mass, a negative mammogram must not discourage biopsy of a clinically suspicious lesion. Electronically Signed By: Jamal frye/kenneth:08/01/2024 09:45:57 letter sent: Normal Exam ACR BI-RADS Category 1: Negative
== END ==
LOC: MAMMO 15:03
PROVIDERS: PCP Internal Medicine; Referring Provider Internal Medicine; Visit Provider Internal Medicine
DX: Z12.31 Encounter for screening mammogram for malignant neoplasm of breast (principal)
CPT/HCPCS: 77063; 77067

== ENCOUNTER → 2025-02-02 14:05 | Outpatient (CLI) | payer OTHER, SELFPAY ==
[2020-05-26 11:07] VITALS: BMI 28.1
--- NOTE | 2025-02-02 14:09 | DI.RAD.S_ITS ---
PROCEDURE: XR KNEE 2V WB LEFT INDICATIONS: left knee pain TECHNIQUE: 3 views of the knee were acquired. COMPARISON: None. FINDINGS: Bones: There are no osseous abnormalities. Joints: Bilateral knee prostheses are in anatomic position without loosening or infection. There is a 5 mm rounded loose body in the lateral left tibial femoral joint. No effusion Soft tissues: Normal IMPRESSION: 5 mm loose body lateral left tibial femoral joint. Bilateral total knee prostheses unremarkable Dictated by: Enoc Angelo M.D. on 02/03/2025 at 11:16 Approved by: Enoc Angelo M.D. on 02/03/2025 at 11:17
== END ==
LOC: RAD 14:07
PROVIDERS: PCP Internal Medicine; Referring Provider Internal Medicine; Visit Provider Internal Medicine
DX: M23.42 Loose body in knee, left knee (principal); M25.562 Pain in left knee; Z96.653 Presence of artificial knee joint, bilateral
CPT/HCPCS: 73564